=== PATIENT | female | born 1980 | race African-American/Black ===

== ENCOUNTER → 2016-09-17 | Outpatient (CLI) | payer OTHER ==
[2016-09-17 13:17] LABS: ABSOLUTE LYMPHOCYTES (AUTO) 1.5 10^3/uL (0.5-4.7); ABSOLUTE MONOCYTES (AUTO) 0.4 10^3/uL (0.1-1.4); ABSOLUTE NEUT (AUTO) 4.8 10^3/uL (1.7-8.2); BASOPHILS % (AUTO) 0.3 % (0-2); EOSINOPHILS % (AUTO) 0.6 % (0-6); HEMATOCRIT 36.6 % (36.0-47.0); HEMOGLOBIN 11.8 g/dL (12.0-15.5); HGB HCT DIFFERENCE -1.2; LYMPHOCYTES % (AUTO) 22.1 % (13-45); MEAN CORPUSCULAR HEMOGLOBIN 26.6 pg (27.0-33.4); MEAN CORPUSCULAR HGB CONC 32.3 g/dL (32.0-36.0); MEAN CORPUSCULAR VOLUME 83 fl (80-97); MONOCYTES % (AUTO) 5.4 % (3-13); RED BLOOD COUNT 4.44 10^6/uL (3.72-5.28); RED CELL DISTRIBUTION WIDTH 13.9 % (11.5-14.0); SEGMENTED NEUTROPHILS % (AUTO) 71.6 % (42-78); WHITE BLOOD COUNT 6.7 10^3/uL (4.0-10.5)
[2016-09-17 13:34] LABS: ALANINE AMINOTRANSFERASE 29 U/L (9-52); ALBUMIN 4.2 g/dL (3.5-5.0); ALKALINE PHOSPHATASE 84 U/L (38-126); ANION GAP 9 (5-19); ASPARTATE AMINO TRANSFERASE 20 U/L (14-36); BILIRUBIN,DIRECT 0.3 mg/dL (0.0-0.4); BILIRUBIN,TOTAL 0.4 mg/dL (0.2-1.3); BLOOD UREA NITROGEN 8 mg/dL (7-20); CALCIUM 9.3 mg/dL (8.4-10.2); CARBON DIOXIDE 26 mmol/L (22-30); CHLORIDE 105 mmol/L (98-107); CHOLESTEROL 234.26 mg/dL (0-200); CREATININE RESULT 0.69 mg/dL (0.52-1.25); Direct HDL 84 mg/dL (>40); GLUCOSE 95 mg/dL (75-110); SODIUM 140.1 mmol/L (137-145); TOTAL PROTEIN 8.1 g/dL (6.3-8.2); TRIGLYCERIDES 77 mg/dL (<150)
[2016-09-17 13:46] LABS: DIRECT LDL 119 mg/dL (<100)
== END ==
LOC: CCC 12:32
DX: I10 Essential (primary) hypertension (principal); E78.4 Other hyperlipidemia
CPT/HCPCS: 36415; 80053; 80061; 84443; 85025

== ENCOUNTER 2016-11-03 14:55 | Emergency (ER) | payer SELFPAY ==
--- NOTE | 2016-11-03 15:23 | ER Document Report ---
ED Medical Screen (RME) - General Chief Complaint: Psych Problem Stated Complaint: SUICIDAL IDEATION Time Seen by Provider: 11/03/16 15:21 Notes: Patient presents with suicidal and homicidal ideation. She also states she hears voices telling her that she should hurt herself. Patient is brought in by mobile crisis. TRAVEL OUTSIDE OF THE [place] IN LAST 30 DAYS: No - Related Data Allergies/Adverse Reactions: No Known Allergies Allergy (Verified 08/27/14 14:15) Past Medical History Renal/ Medical History: Denies: Hx Peritoneal Dialysis Psychiatric Medical History: Reports: Hx Anxiety, Hx Bipolar Disorder, Hx Borderline Personality Disorder, Hx Depression, Hx Obsessive Compulsive Disorder , Hx Schizoaffective Disorder, Hx Schizophrenia - Immunizations Hx Diphtheria, Pertussis, Tetanus Vaccination: No
[2016-11-03 15:53] LABS: ABSOLUTE BASOPHILS # (AUTO) 0.1 10^3/uL (0.0-0.2); ABSOLUTE EOSINOPHILS # (AUTO) 0.1 10^3/uL (0.0-0.6); ABSOLUTE LYMPHOCYTES (AUTO) 1.6 10^3/uL (0.5-4.7); ABSOLUTE MONOCYTES (AUTO) 0.4 10^3/uL (0.1-1.4); ABSOLUTE NEUT (AUTO) 4.9 10^3/uL (1.7-8.2); BASOPHILS % (AUTO) 0.7 % (0-2); EOSINOPHILS % (AUTO) 1.1 % (0-6); HEMATOCRIT 39.3 % (36.0-47.0); HEMOGLOBIN 12.8 g/dL (12.0-15.5); HGB HCT DIFFERENCE -0.9; MEAN CORPUSCULAR HEMOGLOBIN 27.3 pg (27.0-33.4); MEAN CORPUSCULAR HGB CONC 32.7 g/dL (32.0-36.0); MEAN CORPUSCULAR VOLUME 83 fl (80-97); MONOCYTES % (AUTO) 6.1 % (3-13); RED BLOOD COUNT 4.71 10^6/uL (3.72-5.28); RED CELL DISTRIBUTION WIDTH 14.3 % (11.5-14.0); SEGMENTED NEUTROPHILS % (AUTO) 69.1 % (42-78); WHITE BLOOD COUNT 7.1 10^3/uL (4.0-10.5)
[2016-11-03 16:13] LABS: ALANINE AMINOTRANSFERASE 33 U/L (9-52); ALBUMIN 4.5 g/dL (3.5-5.0); ALKALINE PHOSPHATASE 95 U/L (38-126); ANION GAP 13 (5-19); ASPARTATE AMINO TRANSFERASE 26 U/L (14-36); BILIRUBIN,DIRECT 0.3 mg/dL (0.0-0.4); BILIRUBIN,TOTAL 0.5 mg/dL (0.2-1.3); BLOOD UREA NITROGEN 7 mg/dL (7-20); CARBON DIOXIDE 26 mmol/L (22-30); CHLORIDE 103 mmol/L (98-107); CREATININE RESULT 0.82 mg/dL (0.52-1.25); GLUCOSE 91 mg/dL (75-110); POTASSIUM 4.4 mmol/L (3.6-5.0); SODIUM 141.9 mmol/L (137-145); TOTAL PROTEIN 8.3 g/dL (6.3-8.2)
[2016-11-03 16:14] LABS: ALCOHOL < 10 mg/dL (NONE DETECTED)
--- NOTE | 2016-11-03 18:00 | ER Document Report ---
ED Psych Disorder / Suicide - General Information source: Patient TRAVEL OUTSIDE OF THE [place] IN LAST 30 DAYS: No - HPI Onset: Other Onset was: Cannot confirm Suicide Risk Factors: Bipolar, Depressed, Schizophrenia, Other mental health dx. - Hx Anxiety, Hx Bipolar Disorder, Hx Borderline Personality Disorder, Hx Depression, Hx Obsessive Compulsive Disorder, Hx Schizoaffective Disorder, Hx Schizophrenia Situational problems related to: Daughter, Other Associated symptoms: Anxious Similar symptoms previously: Yes Recently seen / treated by doctor: Yes <LATONIA MONTENEGRO - Last Filed: 11/03/16 17:48> <KAYE JURADO - Last Filed: 11/04/16 07:54> <JOSSE BA - Last Filed: 11/04/16 09:33> - General Chief Complaint: Psych Problem Stated Complaint: SUICIDAL IDEATION Time Seen by Provider: 11/03/16 15:21 Notes: Patient said she began to feel as if she might have suicidal thoughts this afternoon. She went over to [facility] and they were unable to get her a room at another facility so they brought her to this emergency department. Patient says she has been having some suicidal thoughts over the past couple of days. She suffers from depression and bipolar disorder and insomnia. She says that she is experiencing suicidal thoughts now. Has not followed up a specific means by which she would commit suicide, however. Patient denies any recent illness. (JOSSE BA) - HPI Notes: Patient is a 36 year old female who presents to [facility] ED via Mobile Crisis for suicidal and homicidal ideations, and auditory command hallucinations instructing her to harm herself and others. Patient reported the following diagnoses: Anxiety, Bipolar Disorder, Borderline Personality Disorder, Depression, Obsessive Compulsive Disorder, Schizoaffective Disorder, and Schizophrenia. Patient this afternoon states she is overwhelmed with going to [facility]5 days a week and going to school. Patient states she "has drama" with her daughter who lives with her mother and is acting out. Patient states she recently started pulling her hair out. Patient states she takes her medications, but cannot afford to take all of them daily as prescribed. Patient initially states when asked that she wants to by suicide. Patient then states she decided to try and get some help. Patient challenged that she does not want to . Patient acknowledges she wants to feel better and not due by suicide. Patient does report prior attempts, and multiple prior inpatient hospitalizations. Patient reports few supports and numerous stressors. Patient reports she lives alone and thought about taking all of her pills. Patient is A&O. Mood is anxious and depressed per patient reports; however, she was observed joyfully engaging in conversation with security and others. Patient endorses suicidal ideations with means and plan. Patient denies homicidal ideations. Patient endorses auditory command hallucinations; however , did not appear to be responding to internal stimuli aeb eye contact, linear thought processes, remaining on topic, etc. Intellectual abilities were estimated within average range. Attention and focus were fair. Insight, judgment , and impulse control were poor. Borderline Personality Disorder, per history Generalized Anxiety Disorder, per history Discussed the care and management of this patient with ED MD, who is in agreement that the patient's presentation is more congruent with attention seeking and seeking to meet basic needs through the misuse of the emergency department and mental health systems. Patient will be held voluntarily overnight for observation and further evaluation/disposition in the morning. I consulted with Dr. Monique in regards to the care and management of this patient. (LATONIA MONTENEGRO) Clinician conducted check-in with patient on 11/04/2016: Patient states she is "not good and irritated." Patient continued to disclose that she needed to eat at this time so she does not get sick with her medications. When asked if patient is having suicidal thoughts she states yes however refuses to discuss further stating "hold on I have to pray." Patient states "she" (mobile photofinishing laboratory worker) is getting me a bed at the [facility], I have already discussed all this yesterday, I am not going through it again." Clinician attempted to explain patient's are reevaluated daily patient became verbally combative demanding to call [facility]; "I knew this was going to happen." Patient is alert and orientated to person, place, time and circumstance. Mood is irritable with labile affect. Patient endorses suicidal ideation however refuses to expound on this. Conversational speech is aggressive and irritable. Delusions were absent and behaviors congruent with an intact reality based presentation (i.e. organized, linear thinking). Eye contact was poor. Intellectual abilities appear to be within the average range. Attention and concentration are fair. Insight, judgment, impulse control were poor. 301.83 (F60.3) Borderline Personality Disorder, per history provided by patient 300.00 (F41.9) Generalized Anxiety Disorder, per history provided by patient Patient is considered psychiatrically clear for discharge. Patient does not meet IVC criteria per [place] GS 122C. Patient discloses passive suicidal ideation delusions were absent and behaviors congruent with an intact reality based presentation i.e. organized, rational, linear thinking. Patient has disclosed long history of mental health services to include currently going to psychosocial rehab 5 days a week. Psychosocial rehab is the most effective course of action to assist the patient for her mental health needs at this time. Dr. Monique was consulted on the care and management of this patient; attending physician is in agreement with recommendations and disposition (KAYE JURADO) - Related Data Allergies/Adverse Reactions: No Known Allergies Allergy (Verified 11/03/16 17:20) Home Medications: Current Home Medications Amlodipine Besylate [Norvasc 10 mg Tablet] 10 mg PO DAILY 11/03/16 [History] Buspirone HCl [Buspar 5 mg Tablet] 1 tab PO TID 11/03/16 [History] Clonazepam [Klonopin 0.5 mg Tablet Rapid Dissolve] 0.5 mg PO BID PRN 11/03/16 [ History] Vortioxetine Hydrobromide [Brintellix] 10 mg PO DAILY 11/03/16 [History] Zolpidem Tartrate [Ambien] 10 mg PO QHS 11/03/16 [History] Past Medical History - Social History Smoking Status: Never Smoker Frequency of alcohol use: None Drug Abuse: None Family History: Reviewed & Not Pertinent, Other Patient has suicidal ideation: Yes Patient has homicidal ideation: No Renal/ Medical History: Denies: Hx Peritoneal Dialysis Psychiatric Medical History: Reports: Hx Anxiety, Hx Bipolar Disorder, Hx Borderline Personality Disorder, Hx Depression, Hx Obsessive Compulsive Disorder , Hx Schizoaffective Disorder, Hx Schizophrenia - Immunizations Hx Diphtheria, Pertussis, Tetanus Vaccination: No <LATONIA MONTENEGRO - Last Filed: 11/03/16 17:48> - Social History Smoking Status: Never Smoker Cigarette use (# per day): No Family History: Reviewed & Not Pertinent - Past Medical History Cardiac Medical History: Reports: None, Hx Hypertension Neurological Medical History: Denies: Hx Seizures Endocrine Medical History: Denies: Hx Diabetes Mellitus Type 1, Hx Diabetes Mellitus Type 2 Psychiatric Medical History: Reports: Hx Anxiety, Hx Bipolar Disorder, Hx Depression Past Surgical History: Reports: Hx Section, Hx Tubal Ligation <JESENIAJOSSE - Last Filed: 11/04/16 09:33> Review of Systems <LATONIA MONTENEGRO - Last Filed: 11/03/16 17:48> <KAYE JURADO - Last Filed: 11/04/16 07:54> <JESENIAJOSSE - Last Filed: 11/04/16 09:33> - Review of Systems Notes: REVIEW OF SYSTEMS: CONSTITUTIONAL : Denies fever. EENT: Denies eye, ear, nose or mouth or throat pain or other symptoms. CARDIOVASCULAR: Denies chest pain. RESPIRATORY: Denies cough, chest congestion, or shortness of breath. GASTROINTESTINAL: Denies abdominal pain or nausea, vomiting, or diarrhea. GENITOURINARY: Denies difficulty or painful urinating, urinary frequency, blood in urine. MUSCULOSKELETAL: Denies back or neck pain. Denies joint pain or swelling. SKIN: Denies rash or skin lesions. NEUROLOGICAL: Denies LOC or altered mental status. Denies headache. Denies sensory loss or motor deficits. Psychological: See HPI. Anxiety, depression, suicidal thoughts ALL OTHER SYSTEMS REVIEWED AND NEGATIVE. (JOSSE BA) Physical Exam <LATONIA MONTENEGRO - Last Filed: 11/03/16 17:48> <KAYE JURADO - Last Filed: 11/04/16 07:54> - Vital signs Interpretation: Normal <JOSSE BA - Last Filed: 11/04/16 09:33> - Vital signs Vitals: Temp Pulse Resp BP Pulse Ox 98.4 F 71 16 129/91 H 100 11/03/16 15:09 11/03/16 15:09 11/03/16 15:09 11/03/16 15:09 11/03/16 15:09 - Notes Notes: PHYSICAL EXAMINATION: GENERAL: Well-appearing, in no acute distress. Vital signs are essentially normal. HEAD: Atraumatic, normocephalic. EYES: Pupils equal round and reactive to light, extraocular movements intact. ENT: oropharynx clear without exudates. Moist mucous membranes. NECK: Normal range of motion, supple. LUNGS: Breath sounds clear and equal bilaterally. HEART: Regular rate and rhythm without murmurs. ABDOMEN: Soft, nontender. No guarding or rebound. BACK: No tenderness throughout entire back. EXTREMITIES: Normal range of motion without pain. NEUROLOGICAL: Normal speech, normal gait. Normal sensory, motor, and reflex exams. Awake, alert, and oriented x3. Cranial nerves normal. PSYCH: Normal mood, normal affect. Does not seem very depressed. From my brief assessment, I do not think she is seriously suicidal. SKIN: Warm, dry, no rashes. (JOSSE BA) Course - Laboratory Result Diagrams: 11/03/16 15:30 11/03/16 15:30 <LATONIA MONTENEGRO - Last Filed: 11/03/16 17:48> - Laboratory Result Diagrams: 11/03/16 15:30 11/03/16 15:30 <KAYE JURADO - Last Filed: 11/04/16 07:54> - Laboratory Result Diagrams: 11/03/16 15:30 11/03/16 15:30 <JOSSE BA - Last Filed: 11/04/16 09:33> - Re-evaluation Re-evalutation: 11/03/16 17:40 Patient will have usual lab studies ordered. Mental health will be consulted. (JOSSE BA) - Vital Signs Vital signs: Temp Pulse Resp BP Pulse Ox 98.7 F 76 18 119/79 97 11/04/16 06:22 11/04/16 06:22 11/03/16 19:44 11/04/16 06:22 11/04/16 06:22 - Laboratory Laboratory results interpreted by me: 11/03/16 11/03/16 11/03/16 15:30 15:30 15:30 RDW 14.3 H Total Protein 8.3 H Urine Blood MODERATE H Salicylates < 1.0 L Acetaminophen < 10 L Discharge <LATONIA MONTENEGRO - Last Filed: 11/03/16 17:48> <KAYE JURADO - Last Filed: 11/04/16 07:54> <JOSSE BA - Last Filed: 11/04/16 09:33> - Discharge Clinical Impression: Borderline personality disorder Condition: Stable Disposition: HOME, SELF-CARE Additional Instructions: DEPRESSION: Your evaluation reveals that you have mental depression. While symptoms may be vague, they often include disturbance of sleep, fatigue, loss of appetite , and general loss of interest in life. While depression may be a side effect of drugs, or a reaction to a major change in your life, many cases have no known cause. If depression is acute, and related to a major loss in your life, you can expect it to clear completely with time. If you have been depressed a long time , are prone to repeated bouts of depression or low mood, or have been thinking of suicide, get help. Depression can be treated with anti-depressant medication and counselling. Long-term depression will often take a few weeks to clear, even with appropriate medication. Follow-up care is important. SUICIDAL IDEATION: Suicidal ideation is a common medical term for thoughts about suicide, which may be as detailed as a formulated plan, without the suicidal act itself. Although most people who undergo suicidal ideation do not commit suicide, some go on to make suicide attempts. The range of suicidal ideation varies greatly from fleeting to detailed planning, role playing, and unsuccessful attempts. While thoughts about suicide are common, most people do not carry out serious actions to commit suicide. Based upon your evaluation and discussion with you, we do not believe you are currently at risk to act upon your thoughts of suicide. You have agreed to return to the Emergency Department, at any time , if you feel inclined to act upon your suicidal thoughts. FOLLOW-UP CARE: Please follow-up with [facility] in 3-5 days for continued mental health needs. If you experience worsening or a significant change in your symptoms, notify the physician immediately or return to the Emergency Department at any time for re- evaluation. Referrals: [facility] [Primary Care Provider] - Follow up as needed [facility] [Outside] - Follow up in 3-5 days
[2016-11-03 18:30] LABS: AMORPHOUS SEDIMENT,URINE 1+ /HPF; APPEARANCE,URINE TURBID; BILIRUBIN,URINE NEGATIVE (NEGATIVE); GLUCOSE, URINE NEGATIVE (NEGATIVE); KETONES,URINE NEGATIVE (NEGATIVE); LEUKOCYTE ESTERASE,URINE NEGATIVE (NEGATIVE); NITRITE,URINE NEGATIVE (NEGATIVE); PROTEIN,URINE NEGATIVE (NEGATIVE); URINE SPECIFIC GRAVITY 1.025; UROBILINOGEN,URINE NEGATIVE mg/dL (<2.0)
[2016-11-03 18:49] LABS: URINE BARBITURATES SCREEN NEGATIVE; URINE METHADONE SCREEN NEGATIVE; URINE OPIATES LOW NEGATIVE; URINE PHENCYCLIDINE SCREEN NEGATIVE
[2016-11-03] MEDS ORDERED: ZOLPIDEM TARTRATE 5 MG TABLET ONE (21:01)
[2016-11-04] MEDS ORDERED: CLONAZEPAM 1 MG TABLET PO PRN (05:30)
[2016-11-04] MEDS ORDERED: BUSPIRONE HCL 10 MG TABLET PO SCH (06:00)
--- NOTE | 2016-11-04 09:32 | ER Document Report ---
Doctor's Note Notes: 11/04/16 09:31 Rounds: Chart reviewed and patient interviewed. Patient says she is not feeling any better, but does not appear to be suicidal to me. She has been evaluated by mental health who also do not feel that she meets criteria for involuntary commitment. Vital signs are all normal. Labs were essentially normal. Patient is medically stable for transfer or discharge and she is being discharged. Alina Monroy MD
[2016-11-04] MEDS ORDERED: (PENDING PHARMACY ID) (Vortioxetine Hydrobromide [Trintellix] 10 MG) PO SCH (10:00)
[2016-11-04] MEDS ORDERED: AMLODIPINE BESYLATE 10 MG TABLET PO SCH (10:00)
[2016-11-04 10:05] VITALS: BP 132/74
[2016-11-04] MEDS ORDERED: ZOLPIDEM TARTRATE 5 MG TABLET PO SCH (22:00)
== END 2016-11-04 10:05 | disposition home or self-care (01) ==
LOC: ER 14:55
DX: F60.3 Borderline personality disorder (principal); F41.9 Anxiety disorder, unspecified; I10 Essential (primary) hypertension; Z91.14 Patient's other noncompliance with medication regimen
CPT/HCPCS: 36415; 80053; 80307; 81001; 84703; 85025; 99285

== ENCOUNTER 2017-12-23 12:11 | Emergency (ER) | payer SELFPAY ==
[2017-12-23] MEDS ORDERED: ZIPRASIDONE MESYLATE INJ/PF 20 MG SDV IM ONE (12:41)
--- NOTE | 2017-12-23 12:44 | ER Document Report ---
ED Medical Screen (RME) - General Chief Complaint: Psych Problem Stated Complaint: PSYCH EVAL Time Seen by Provider: 12/23/17 12:41 Notes: 37 years old female with a history of psychotic disorder has not been taking any medications for a long time, apparently on the 12th of this month daughter left the house. Since then having with them in her words nervous breakdown. Having auditory hallucinations with voices telling to hurt herself as well as her the others. Therefore she presents to the ED for help. TRAVEL OUTSIDE OF THE [place] IN LAST 30 DAYS: No - Related Data Allergies/Adverse Reactions: No Known Allergies Allergy (Verified 12/23/17 12:12) Past Medical History - Past Medical History Cardiac Medical History: Reports: Hx Hypertension Neurological Medical History: Denies: Hx Seizures Endocrine Medical History: Denies: Hx Diabetes Mellitus Type 1, Hx Diabetes Mellitus Type 2 Renal/ Medical History: Denies: Hx Peritoneal Dialysis Psychiatric Medical History: Reports: Hx Anxiety, Hx Bipolar Disorder, Hx Borderline Personality Disorder, Hx Depression, Hx Obsessive Compulsive Disorder , Hx Schizoaffective Disorder, Hx Schizophrenia Past Surgical History: Reports: Hx Section, Hx Tubal Ligation - Immunizations Hx Diphtheria, Pertussis, Tetanus Vaccination: No Physical Exam - Vital signs Vitals: Temp Pulse Resp BP Pulse Ox 98.7 F 78 20 154/90 H 100 12/23/17 12:39 12/23/17 12:39 12/23/17 12:39 12/23/17 12:39 12/23/17 12:39 Course - Vital Signs Vital signs: Temp Pulse Resp BP Pulse Ox 98.7 F 78 20 154/90 H 100 12/23/17 12:39 12/23/17 12:39 12/23/17 12:39 12/23/17 12:39 12/23/17 12:39 Doctor's Discharge - Discharge Referrals: [facility] [Primary Care Provider] - Follow up as needed
--- NOTE | 2017-12-23 13:01 | ER Document Report ---
ED Psych Disorder / Suicide <KAYE JURADO - Last Filed: 12/24/17 08:50> - General TRAVEL OUTSIDE OF THE [place] IN LAST 30 DAYS: No <JOSSE BA - Last Filed: 12/24/17 09:36> - General Chief Complaint: Psych Problem Stated Complaint: PSYCH EVAL Time Seen by Provider: 12/23/17 12:41 Notes: Patient is here because she is having thoughts of harming herself. She says that she is upset because her 19-year-old daughter is and she left the home and the patient does not know where she is. Patient says that she has mental conditions and goes to [facility]. She feels as if she may be going to have a nervous breakdown. Told someone working for [employer] that she was considering walking out in front of traffic. She is not on any current medications. Patient is refusing any examination, medication, or further assessment. She sounds very angry and hostile. (JOSSE BA) - Related Data Allergies/Adverse Reactions: No Known Allergies Allergy (Verified 12/23/17 12:12) Past Medical History - Social History Smoking Status: Former Smoker Chew tobacco use (# tins/day): No Frequency of alcohol use: None Drug Abuse: None Family History: Reviewed & Not Pertinent Patient has suicidal ideation: Yes Patient has homicidal ideation: Yes - Past Medical History Cardiac Medical History: Reports: Hx Hypertension Endocrine Medical History: Denies: Hx Diabetes Mellitus Type 1, Hx Diabetes Mellitus Type 2 Psychiatric Medical History: Reports: Hx Anxiety, Hx Bipolar Disorder, Hx Borderline Personality Disorder, Hx Depression, Hx Obsessive Compulsive Disorder , Hx Schizoaffective Disorder, Hx Schizophrenia Past Surgical History: Reports: Hx Section, Hx Tubal Ligation - Immunizations Hx Diphtheria, Pertussis, Tetanus Vaccination: No <JOSSE BA - Last Filed: 12/24/17 09:36> Review of Systems - Review of Systems -: Yes ROS unobtainable due to patient's medical condition <JOSSE BA - Last Filed: 12/24/17 09:36> Physical Exam <KAYE JURADO - Last Filed: 12/24/17 08:50> - Vital signs Interpretation: Normal <JOSSE BA - Last Filed: 12/24/17 09:36> - Vital signs Vitals: Temp Pulse Resp BP Pulse Ox 98.7 F 78 20 154/90 H 100 12/23/17 12:39 12/23/17 12:39 12/23/17 12:39 12/23/17 12:39 12/23/17 12:39 - Notes Notes: Patient is agreeable to me examining her at this time after receiving Geodon 20 mg IM. PHYSICAL EXAMINATION: GENERAL: Well-appearing, in no acute distress. Speech is somewhat fast and loud and aggravated sounding upon presentation, but now seems calm and quiet and cooperative. HEAD: Atraumatic, normocephalic. EYES: Pupils equal round and reactive to light, extraocular movements intact. ENT: oropharynx clear without exudates. Moist mucous membranes. NECK: Normal range of motion, supple. LUNGS: Breath sounds clear and equal bilaterally. HEART: Regular rate and rhythm without murmurs. ABDOMEN: Soft, nontender. No guarding or rebound. No masses. Nurses report patient has complained of nausea and she vomited twice. Patient says she also has "the runs" now. BACK: No tenderness throughout entire back. EXTREMITIES: Normal range of motion without pain. NEUROLOGICAL: Normal, but loud speech upon presentation. Normal gait. Normal sensory, motor, and reflex exams. Awake, alert, and oriented x3. Cranial nerves normal. PSYCH: Normal mood, normal affect. SKIN: Warm, dry, no rashes. (JOSSE BA) Course - Laboratory Result Diagrams: 12/23/17 13:45 12/23/17 13:45 <KAYE JURADO - Last Filed: 12/24/17 08:50> - Laboratory Result Diagrams: 12/23/17 13:45 12/23/17 13:45 <JOSSE BA - Last Filed: 12/24/17 09:36> - Re-evaluation Re-evalutation: 12/23/17 15:53 Patient was given grams IM. She rather quickly calmed down and cooperated with request for blood and urine. Vomited a couple of times, but says she no longer nauseated and does not for the nausea or vomiting. Also says she had an episode of diarrhea. I did my physical exam of the patient's abdomen is completely soft and nontender throughout. 12/23/17 18:53 Labs all essentially normal except for positive marijuana on patient's drug test. (JOSSE BA) - Vital Signs Vital signs: Temp Pulse Resp BP Pulse Ox 97.4 F 69 18 147/82 H 100 12/24/17 09:31 12/24/17 09:31 12/24/17 09:31 12/24/17 09:31 12/24/17 09:31 - Laboratory Laboratory results interpreted by me: 12/23/17 12/23/17 12/23/17 13:45 13:45 13:50 RDW 14.7 H Urine Protein 30 H Urine Ketones TRACE H Urine Blood LARGE H Salicylates < 1.0 L Acetaminophen < 10 L Discharge <KAYE JURADO - Last Filed: 12/24/17 08:50> <JOSSE BA - Last Filed: 12/24/17 09:36> - Discharge Clinical Impression: Depression Qualifiers: Depression Type: unspecified Qualified Code(s): F32.9 - Major depressive disorder, single episode, unspecified Condition: Stable Disposition: HOME, SELF-CARE Additional Instructions: You have been evaluated by both medical and behavioral health teams and have been deemed appropriate for discharge. Please follow up with your outpatient mental health, [facility], at your regularly scheduled appointment on Wednesday at 1pm for therapy and 2pm for your medication management appointment. You have been provided prescriptions for BuSpar 5 mg 3 times daily, Prozac 10 mg daily and Zyprexa 2.5 mg nightly; please take as directed DEPRESSION: Your evaluation reveals that you have mental depression. While symptoms may be vague, they often include disturbance of sleep, fatigue, loss of appetite , and general loss of interest in life. While depression may be a side effect of drugs, or a reaction to a major change in your life, many cases have no known cause. If depression is acute, and related to a major loss in your life, you can expect it to clear completely with time. If you have been depressed a long time , are prone to repeated bouts of depression or low mood, or have been thinking of suicide, get help. Depression can be treated with anti-depressant medication and counselling. Long-term depression will often take a few weeks to clear, even with appropriate medication. Follow-up care is important. FOLLOW-UP CARE: If you experience worsening or a significant change in your symptoms, notify the physician immediately or return to the Emergency Department at any time for re-evaluation. Prescriptions: Olanzapine [Zyprexa 2.5 Mg Tablet] 2.5 mg PO QHS #15 tablet Buspirone HCl [Buspar 5 mg Tablet] 1 tab PO TID #50 tab Fluoxetine HCl [Prozac] 10 mg PO DAILY #15 capsule Referrals: [facility] [Primary Care Provider] - Follow up as needed [facility] [Provider Group] - 12/27/17
--- NOTE | 2017-12-23 13:21 | PSYCHOLOGICAL NOTE ---
Psych Note - Psych Note Date seen by psych provider: 12/23/17 Time seen by psych provider: 13:00 Psych Note: Reason for Consult: Suicidal ideation, auditory hallucinations 37 years old female with a history of psychotic disorder has not been taking any medications for a long time, apparently on the of this month daughter left the house. Since then having she reports she is having a "nervous breakdown" and auditory hallucinations with voices telling to hurt herself as well as others. Therefore she presents to the ED for help. Clinician Abdulaziz received phone call from mobile yarn worker who disclosed they had responded to a crisis call. They report the patient was very distraught and made suicidal comments. She continued to report the patient refused to be taken to [facility] however then confirmed she would only she would walk into the ED on her own. Patient reports that her daughter moved out of their home with no warning. She discloses she does not understand why. She continued to report that while she [facility] on Wednesday her daughter moved out when she came home she found the escoto sitting on the table with a note stating that she did not want to live a lie anymore and that she felt the patient was a bad mother. The patient continued disclosed her daughter since has blocked her phone so she is unable to get in contact with her and she does not know if her daughter safe. Patient is alert and orientated to person, place, time and circumstance. Clinician notes patient appeared to be confused about circumstance when originally arriving to [facility] however has since been able to articulate her circumstance clearly. Patient endorses suicidal ideation of jumping into traffic however when directly asked to discuss this she evades questioning. Patient will not disclose on homicidal ideation. Mood is labile fluctuating between tearful affect and irritability. Thought processes are organized and linear however thought content is very focused on her current stressor. She has difficulty in engaging in evaluation other than talking about her stressor. Eye contact is poor; patient never makes eye contact. Intellectual abilities appear to be within the average range. Attention and concentration are poor. Insight, judgment, impulse control are fair. Patient's home medication per [facility] BuSpar 5 mg 3 times daily Prozac 10 mg daily Zyprexa 2.5 mg nightly 311 (F32.9) unspecified depressive disorder Impression\\plan: Patient is recommended for IVC. Patient mood is very labile fluctuating between tearful affect and irritability. Patient reports she wants help however refuses to engage with clinician in [facility] staff. Patient discloses having difficulty dealing with her 19-year-old daughter moving out while she was at a doctor appointment. Since that appointment, the patient's daughter has ceased any communication and blocked her number. Patient will be reevaluated. Dr. Monique was consulted and the care management this patient; attending physician is agreement with recommendations and disposition.
[2017-12-23 14:11] LABS: ABSOLUTE LYMPHOCYTES (AUTO) 0.9 10^3/uL (0.5-4.7); ABSOLUTE MONOCYTES (AUTO) 0.3 10^3/uL (0.1-1.4); ABSOLUTE NEUT (AUTO) 3.1 10^3/uL (1.7-8.2); BASOPHILS % (AUTO) 0.6 % (0-2); EOSINOPHILS % (AUTO) 0.4 % (0-6); HEMATOCRIT 36.3 % (36.0-47.0); HEMOGLOBIN 12.2 g/dL (12.0-15.5); LYMPHOCYTES % (AUTO) 20.4 % (13-45); MEAN CORPUSCULAR HEMOGLOBIN 28.6 pg (27.0-33.4); MEAN CORPUSCULAR HGB CONC 33.5 g/dL (32.0-36.0); MEAN CORPUSCULAR VOLUME 85 fl (80-97); MONOCYTES % (AUTO) 6.1 % (3-13); PLATELET COUNT 237 10^3/uL (150-450); RED BLOOD COUNT 4.26 10^6/uL (3.72-5.28); RED CELL DISTRIBUTION WIDTH 14.7 % (11.5-14.0); SEGMENTED NEUTROPHILS % (AUTO) 72.5 % (42-78); TOTAL CELLS COUNTED % (AUTO) 100 %; WHITE BLOOD COUNT 4.3 10^3/uL (4.0-10.5)
[2017-12-23 14:40] LABS: ALANINE AMINOTRANSFERASE 23 U/L (9-52); ALBUMIN 4.1 g/dL (3.5-5.0); ALKALINE PHOSPHATASE 62 U/L (38-126); ANION GAP 11 (5-19); ASPARTATE AMINO TRANSFERASE 21 U/L (14-36); BILIRUBIN,DIRECT 0.2 mg/dL (0.0-0.4); BILIRUBIN,TOTAL 0.7 mg/dL (0.2-1.3); BLOOD UREA NITROGEN 9 mg/dL (7-20); CALCIUM 9.5 mg/dL (8.4-10.2); CARBON DIOXIDE 23 mmol/L (22-30); CHLORIDE 106 mmol/L (98-107); GLUCOSE 101 mg/dL (75-110); POTASSIUM 3.9 mmol/L (3.6-5.0); SODIUM 139.6 mmol/L (137-145); TOTAL PROTEIN 7.4 g/dL (6.3-8.2)
[2017-12-23 14:42] LABS: ACETAMINOPHEN < 10 ug/mL (10-30); ALCOHOL < 10 mg/dL (NONE DETECTED); SALICYLATE < 1.0 mg/dL (2.0-20.0)
[2017-12-23 15:07] LABS: APPEARANCE,URINE SLIGHTLY-CLOUDY; BILIRUBIN,URINE NEGATIVE (NEGATIVE); COLOR,URINE YELLOW; GLUCOSE, URINE NEGATIVE (NEGATIVE); KETONES,URINE TRACE mg/dL (NEGATIVE); LEUKOCYTE ESTERASE,URINE NEGATIVE (NEGATIVE); NITRITE,URINE NEGATIVE (NEGATIVE); PROTEIN,URINE 30 mg/dL (NEGATIVE); URINE SPECIFIC GRAVITY 1.023; UROBILINOGEN,URINE NEGATIVE mg/dL (<2.0)
[2017-12-23 15:17] LABS: URINE AMPHETAMINES SCREEN NEGATIVE; URINE BARBITURATES SCREEN NEGATIVE; URINE BENZODIAZEPINES SCREEN NEGATIVE; URINE COCAINE SCREEN NEGATIVE; URINE MARIJUANA (THC) SCREEN UNCONFIRMED POSITIVE; URINE METHADONE SCREEN NEGATIVE; URINE PHENCYCLIDINE SCREEN NEGATIVE
[2017-12-23] MEDS: FLUOXETINE HCL 20 MG CAPSULE PO SCH (17:07)
[2017-12-23] MEDS: BUSPIRONE HCL 10 MG TABLET PO SCH (17:07)
--- NOTE | 2017-12-23 18:28 | EKG REPORT ---
SEVERITY:- NORMAL ECG - SINUS RHYTHM : Confirmed by: Thomas Spencer MD 23-Dec-2017 18:28:02
[2017-12-23] MEDS ORDERED: OLANZAPINE 2.5 MG TABLET PO SCH (22:00)
[2017-12-24] MEDS: FLUOXETINE HCL 20 MG CAPSULE PO SCH (09:14)
[2017-12-24] MEDS: BUSPIRONE HCL 10 MG TABLET PO SCH (09:14)
[2017-12-24 09:34] VITALS: BP 147/82
--- NOTE | 2017-12-24 09:41 | ER Document Report ---
Doctor's Note Notes: 12/24/17 09:39 Rounds: Chart reviewed and patient interviewed. Patient is doing much better. Very pleasant, outgoing, conversant, no complaints. Patient has been started on BuSpar, Prozac, and Zyprexa. Vital signs are all normal. No labs to review today. Patient appears to be medically stable for transfer or discharge. Alina Monroy MD
--- NOTE | 2017-12-24 15:35 | PSYCHOLOGICAL NOTE ---
Psych Note - Psych Note Date seen by psych provider: 12/24/17 Time seen by psych provider: 08:04 Psych Note: Reason for Consult: Suicidal ideation, auditory hallucinations 37 years old female with a history of psychotic disorder has not been taking any medications for a long time, apparently on the of this month daughter left the house. Since then having she reports she is having a "nervous breakdown" and auditory hallucinations with voices telling to hurt herself as well as others. Therefore she presents to the ED for help. Clinician conducted check-in with patient Patient apologized to clinician about her behavior during her initial arrival to [facility] yesterday. She reports she has little memory of what occurred. She discloses that she has been having difficulty sleeping since her daughter left with no word. She reports that she has a therapy appointment on Wednesday at 1 PM in a medication management appointment at 2 PM with her provider at [facility]. She disclosed that she been off medication for years and been doing well however after trying all of her coping skills is very clear she needed more assistance. She reports she is very glad she came in even though she seemed to have come in confused about the situation. Patient's home medication per [facility] BuSpar 5 mg 3 times daily Prozac 10 mg daily Zyprexa 2.5 mg nightly 311 (F32.9) unspecified depressive disorder Impression\\plan: Patient is recommended for rescind of IVC and is cleared from acute psychiatric services. Patient discloses that she has been under a lot of stress and not sleeping since her daughter left. She apologized for her behavior previous day and reports that she does have scheduled appointments for therapy and medication management on 12/27/2017 with her outpatient mental health provider, an[facility]. Patient states she attempted to use her coping skills however she is glad she was started on medications because it appears that she needed the extra assistance. Dr. Monique was consulted and the care management this patient; attending physician is agreement with recommendations and disposition.
== END 2017-12-24 09:34 | disposition home or self-care (01) ==
LOC: ER 12:11
DX: F32.9 Major depressive disorder, single episode, unspecified (principal); R45.851 Suicidal ideations; R44.0 Auditory hallucinations; R11.10 Vomiting, unspecified; I10 Essential (primary) hypertension; Z98.51 Tubal ligation status
CPT/HCPCS: 93005; 99285; 96372; 36415; 80307 ×4; 85025; 80053; 81001; 93010; J3490; J3486

== ENCOUNTER 2018-05-06 15:35 | Emergency (ER) | payer SELFPAY ==
--- NOTE | 2018-05-06 16:15 | ER Document Report ---
ED Medical Screen (RME) - General Chief Complaint: Vaginal Bleeding Stated Complaint: ABNORMAL VAGINAL BLEEDING Time Seen by Provider: 05/06/18 16:12 Notes: Patient says that she is noticed vaginal bleeding daily for the past 2-1/2 weeks. It comes and goes each day. Has never had this happen before. Her last menstrual cycle was at the beginning of April. She has had her tubes tied. BTL, . Hypertension. TRAVEL OUTSIDE OF THE U[place] IN LAST 30 DAYS: No - Related Data Allergies/Adverse Reactions: No Known Allergies Allergy (Verified 12/23/17 12:12) Past Medical History - Social History Chew tobacco use (# tins/day): No Frequency of alcohol use: None Drug Abuse: None, Marijuana - Past Medical History Cardiac Medical History: Reports: Hx Hypertension Neurological Medical History: Denies: Hx Seizures Endocrine Medical History: Denies: Hx Diabetes Mellitus Type 1, Hx Diabetes Mellitus Type 2 Renal/ Medical History: Denies: Hx Peritoneal Dialysis Psychiatric Medical History: Reports: Hx Anxiety, Hx Bipolar Disorder, Hx Borderline Personality Disorder, Hx Depression, Hx Obsessive Compulsive Disorder, Hx Schizoaffective Disorder, Hx Schizophrenia Past Surgical History: Reports: Hx Section, Hx Tubal Ligation - Immunizations Hx Diphtheria, Pertussis, Tetanus Vaccination: No Physical Exam - Vital signs Vitals: Temp Pulse Resp BP Pulse Ox 99.0 F 71 16 131/71 H 100 05/06/18 15:52 05/06/18 15:52 05/06/18 15:52 05/06/18 15:52 05/06/18 15:52 Course - Vital Signs Vital signs: Temp Pulse Resp BP Pulse Ox 99.0 F 71 16 131/71 H 100 05/06/18 15:52 05/06/18 15:52 05/06/18 15:52 05/06/18 15:52 05/06/18 15:52
[2018-05-06 16:46] LABS: ABSOLUTE EOSINOPHILS # (AUTO) 0.1 10^3/uL (0.0-0.6); ABSOLUTE LYMPHOCYTES (AUTO) 1.6 10^3/uL (0.5-4.7); ABSOLUTE MONOCYTES (AUTO) 0.5 10^3/uL (0.1-1.4); ABSOLUTE NEUT (AUTO) 5.7 10^3/uL (1.7-8.2); BASOPHILS % (AUTO) 0.5 % (0-2); EOSINOPHILS % (AUTO) 0.8 % (0-6); HEMATOCRIT 35.8 % (36.0-47.0); HEMOGLOBIN 11.7 g/dL (12.0-15.5); LYMPHOCYTES % (AUTO) 20.1 % (13-45); MEAN CORPUSCULAR HGB CONC 32.8 g/dL (32.0-36.0); MEAN CORPUSCULAR VOLUME 86 fl (80-97); MONOCYTES % (AUTO) 6.3 % (3-13); PLATELET COUNT 267 10^3/uL (150-450); RED BLOOD COUNT 4.18 10^6/uL (3.72-5.28); RED CELL DISTRIBUTION WIDTH 14.1 % (11.5-14.0); SEGMENTED NEUTROPHILS % (AUTO) 72.3 % (42-78); TOTAL CELLS COUNTED % (AUTO) 100 %; WHITE BLOOD COUNT 7.9 10^3/uL (4.0-10.5)
[2018-05-06 16:49] LABS: APPEARANCE,URINE CLEAR; BILIRUBIN,URINE NEGATIVE (NEGATIVE); COLOR,URINE STRAW; GLUCOSE, URINE NEGATIVE (NEGATIVE); KETONES,URINE NEGATIVE (NEGATIVE); LEUKOCYTE ESTERASE,URINE NEGATIVE (NEGATIVE); NITRITE,URINE NEGATIVE (NEGATIVE); PROTEIN,URINE NEGATIVE (NEGATIVE); URINE SPECIFIC GRAVITY 1.015; UROBILINOGEN,URINE NEGATIVE mg/dL (<2.0)
[2018-05-06 16:58] LABS: ALANINE AMINOTRANSFERASE 21 U/L (9-52); ALBUMIN 4.2 g/dL (3.5-5.0); ALKALINE PHOSPHATASE 58 U/L (38-126); ANION GAP 10 (5-19); ASPARTATE AMINO TRANSFERASE 21 U/L (14-36); BILIRUBIN,DIRECT 0.1 mg/dL (0.0-0.4); BILIRUBIN,TOTAL 0.3 mg/dL (0.2-1.3); BLOOD UREA NITROGEN 14 mg/dL (7-20); CALCIUM 9.5 mg/dL (8.4-10.2); CARBON DIOXIDE 26 mmol/L (22-30); CHLORIDE 104 mmol/L (98-107); GLUCOSE 96 mg/dL (75-110); POTASSIUM 4.1 mmol/L (3.6-5.0); SODIUM 139.8 mmol/L (137-145); TOTAL PROTEIN 7.5 g/dL (6.3-8.2)
--- NOTE | 2018-05-06 17:43 | RADIOLOGY REPORT (SQ) ---
EXAM DESCRIPTION: U/S NON-OB PELVIS TV W/O DOP COMPLETED DATE/TIME: 05/06/2018 5:13 pm REASON FOR STUDY: Heavy vaginal bleeding x2 half weeks COMPARISON: None. TECHNIQUE: Dynamic and static grayscale images acquired of the pelvis via transvaginal approach and recorded on PACS. Additional selected color Doppler and spectral images recorded. LIMITATIONS: None. FINDINGS: UTERUS: Contour normal. No mass. ENDOMETRIAL STRIPE: No focal or generalized thickening. No masses. CERVIX: No nabothian cysts. RIGHT OVARY AND DOPPLER: Normal size. No worrisome masses. Normal arterial vascular flow without evid ence for torsion. LEFT OVARY AND DOPPLER: Normal size. No worrisome masses. Normal arterial vascular flow without evide nce for torsion. FREE FLUID: None noted. OTHER: No other significant finding. MEASUREMENTS: UTERUS: 9.1 x 5.7 x 5.3 cm ENDOMETRIAL STRIPE: 1.4 cm RIGHT OVARY: 2.9 x 3.4 x 2.2 cm LEFT OVARY: 3.0 x 2.3 x 2.1 cm IMPRESSION: NORMAL TRANSVAGINAL PELVIC ULTRASOUND. TECHNICAL DOCUMENTATION: JOB ID: [id number] [place]-72 2010 [employer]- All Rights Reserved Rev-07/23 Reading location - IP/workstation name: [email or web address]
--- NOTE | 2018-05-06 19:28 | ER Document Report ---
ED General - General Chief Complaint: Vaginal Bleeding Stated Complaint: ABNORMAL VAGINAL BLEEDING Time Seen by Provider: 05/06/18 16:12 Mode of Arrival: Ambulatory Information source: Patient TRAVEL OUTSIDE OF THE [place] IN LAST 30 DAYS: No - HPI Patient complains to provider of: DUB Onset: Other - 2.5 WEEKS Onset/Duration: Constant, Waxing and waning Quality of pain: Cramping Severity: None Pain Level: Denies Associated symptoms: None Exacerbated by: Denies Relieved by: Denies Similar symptoms previously: No Recently seen / treated by doctor: No Notes: 37-year-old -Fijian female with continuous waxing and waning vaginal bleeding for the past 2-1/2 weeks. Denies . Denies sexual intercourse or any vaginal trauma. Unable to get in to see oncology. No weakness, dizziness, shortness of breath, lightheadedness, or syncope. No chest pain - Related Data Allergies/Adverse Reactions: No Known Allergies Allergy (Verified 12/23/17 12:12) Past Medical History - General Information source: Patient - Social History Smoking Status: Never Smoker Chew tobacco use (# tins/day): No Frequency of alcohol use: None Drug Abuse: None, Marijuana Family History: Reviewed & Not Pertinent Patient has suicidal ideation: No Patient has homicidal ideation: No - Past Medical History Cardiac Medical History: Reports: Hx Hypertension Neurological Medical History: Denies: Hx Seizures Endocrine Medical History: Denies: Hx Diabetes Mellitus Type 1, Hx Diabetes Mellitus Type 2 Renal/ Medical History: Denies: Hx Peritoneal Dialysis Psychiatric Medical History: Reports: Hx Anxiety, Hx Bipolar Disorder, Hx Borderline Personality Disorder, Hx Depression, Hx Obsessive Compulsive Disorder, Hx Schizoaffective Disorder, Hx Schizophrenia Past Surgical History: Reports: Hx Section, Hx Tubal Ligation - Immunizations Hx Diphtheria, Pertussis, Tetanus Vaccination: No Review of Systems - Review of Systems Notes: Constitutional: No fevers. No chills. EENT: No eye redness. No eye pain. No ear pain. No sore throat. Cardiovascular: No chest pain. No palpitations. Respiratory: No cough. No shortness of breath. No respiratory distress. Gastrointestinal: No abdominal pain. No nausea, vomiting, or diarrhea. Genitourinary: Atraumatic. No lesions. No pain. No discharge. Vaginal bleeding Musculoskeletal: Atraumatic. No swelling. No deformities. Skin: No rash or lesions. Lymphatic: No swollen lymph nodes. Neurologic: No headache. No syncope. Psychiatric: No suicidal or homicidal ideation. Physical Exam - Vital signs Vitals: Temp Pulse Resp BP Pulse Ox 99.0 F 71 16 131/71 H 100 05/06/18 15:52 05/06/18 15:52 05/06/18 15:52 05/06/18 15:52 05/06/18 15:52 - Notes Notes: General: Well-developed, well-nourished. In no acute distress. Non-toxic dorcas earing. Cardiac: Well-perfused. Pulmonary: No respiratory distress. No cyanosis. Abdominal: Non-distended. HEENT: Head is atraumatic. Conjunctivae not reddened. No tearing. Dermatologic: NO RASH VISUALIZED Atraumatic. Chest: Atraumatic. Musculoskeletal: Moves all extremities well. Genitourinary: Examination deferred Neurologic: No gross neurologic deficits. Psychiatric: Normal mood. Course - Re-evaluation Re-evalutation: 05/06/18 19:28 Labs are stable. HCG is negative. Pelvic ultrasound reveals no obvious abno rmalities. Patient does not have any risk factors for blood clots. Discussed the option of starting on control pills. Patient would like to start control pills to regulate her cycle. We will start her on Loestrin pack and give her Dr. Ahmadi as follow-up - Vital Signs Vital signs: Temp Pulse Resp BP Pulse Ox 99.0 F 71 16 131/71 H 100 05/06/18 15:52 05/06/18 15:52 05/06/18 15:52 05/06/18 15:52 05/06/18 15:52 - Laboratory Result Diagrams: 05/06/18 16:25 05/06/18 16:25 Laboratory results interpreted by me: 05/06/18 16:25 Hgb 11.7 L Hct 35.8 L RDW 14.1 H Discharge - Discharge Clinical Impression: Dysfunctional uterine bleeding, Mild anemia Condition: Good Disposition: HOME, SELF-CARE Instructions: Dysfunctional Uterine Bleeding ([facility]) Additional Instructions: Start the control pill as directed. This should help regulate her monthly bleeding. In the meantime, be sure to make an appointment with gynecology as follow-up. Prescriptions: Norethindrone-E.estradiol-Iron [Loestrin Fe 1.5-30 Tablet] 1 tab PO DAILY #1 pkt Referrals: YUDI AHMADI MD [ACTIVE STAFF] - Follow up in 1 week
[2018-05-06 19:52] VITALS: BP 132/85
== END 2018-05-06 19:53 | disposition home or self-care (01) ==
LOC: ER 15:35
DX: N93.8 Other specified abnormal uterine and vaginal bleeding (principal); D64.9 Anemia, unspecified; I10 Essential (primary) hypertension
CPT/HCPCS: 36415; 76830; 80053; 81001; 84703; 85025; 99284

== ENCOUNTER → 2018-05-06 | Outpatient (CLI) | payer OTHER ==
[2018-05-06 13:20] LABS: ABSOLUTE LYMPHOCYTES (AUTO) 1.4 10^3/uL (0.5-4.7); ABSOLUTE MONOCYTES (AUTO) 0.4 10^3/uL (0.1-1.4); ABSOLUTE NEUT (AUTO) 4.8 10^3/uL (1.7-8.2); BASOPHILS % (AUTO) 0.4 % (0-2); EOSINOPHILS % (AUTO) 0.7 % (0-6); HEMATOCRIT 35.6 % (36.0-47.0); HEMOGLOBIN 11.9 g/dL (12.0-15.5); LYMPHOCYTES % (AUTO) 21.2 % (13-45); MEAN CORPUSCULAR HEMOGLOBIN 28.5 pg (27.0-33.4); MEAN CORPUSCULAR HGB CONC 33.5 g/dL (32.0-36.0); MEAN CORPUSCULAR VOLUME 85 fl (80-97); MONOCYTES % (AUTO) 5.5 % (3-13); PLATELET COUNT 259 10^3/uL (150-450); RED BLOOD COUNT 4.19 10^6/uL (3.72-5.28); RED CELL DISTRIBUTION WIDTH 14.2 % (11.5-14.0); SEGMENTED NEUTROPHILS % (AUTO) 72.2 % (42-78); TOTAL CELLS COUNTED % (AUTO) 100 %; WHITE BLOOD COUNT 6.6 10^3/uL (4.0-10.5)
[2018-05-06 13:34] LABS: ALANINE AMINOTRANSFERASE 27 U/L (9-52); ALBUMIN 4.2 g/dL (3.5-5.0); ALKALINE PHOSPHATASE 54 U/L (38-126); ANION GAP 8 (5-19); ASPARTATE AMINO TRANSFERASE 21 U/L (14-36); BILIRUBIN,DIRECT 0.2 mg/dL (0.0-0.4); BILIRUBIN,TOTAL 0.5 mg/dL (0.2-1.3); BLOOD UREA NITROGEN 10 mg/dL (7-20); CALCIUM 9.7 mg/dL (8.4-10.2); CARBON DIOXIDE 28 mmol/L (22-30); CHLORIDE 107 mmol/L (98-107); GLUCOSE 93 mg/dL (75-110); POTASSIUM 4.5 mmol/L (3.6-5.0); SODIUM 142.5 mmol/L (137-145); TOTAL PROTEIN 7.2 g/dL (6.3-8.2)
== END ==
LOC: CCC 12:21
DX: I10 Essential (primary) hypertension (principal)
CPT/HCPCS: 36415; 80053; 83036; 84443; 85025

== ENCOUNTER → 2018-05-25 | Outpatient (CLI) | payer OTHER ==
[2018-05-25 16:27] LABS: ABSOLUTE LYMPHOCYTES (AUTO) 1.4 10^3/uL (0.5-4.7); ABSOLUTE MONOCYTES (AUTO) 0.5 10^3/uL (0.1-1.4); ABSOLUTE NEUT (AUTO) 5.5 10^3/uL (1.7-8.2); BASOPHILS % (AUTO) 0.4 % (0-2); EOSINOPHILS % (AUTO) 0.4 % (0-6); HEMATOCRIT 36.2 % (36.0-47.0); HEMOGLOBIN 12.2 g/dL (12.0-15.5); MEAN CORPUSCULAR HEMOGLOBIN 28.6 pg (27.0-33.4); MEAN CORPUSCULAR HGB CONC 33.7 g/dL (32.0-36.0); MEAN CORPUSCULAR VOLUME 85 fl (80-97); MONOCYTES % (AUTO) 6.7 % (3-13); PLATELET COUNT 243 10^3/uL (150-450); RED BLOOD COUNT 4.27 10^6/uL (3.72-5.28); RED CELL DISTRIBUTION WIDTH 15.3 % (11.5-14.0); SEGMENTED NEUTROPHILS % (AUTO) 73.5 % (42-78); TOTAL CELLS COUNTED % (AUTO) 100 %; WHITE BLOOD COUNT 7.5 10^3/uL (4.0-10.5)
== END ==
LOC: CCC 15:11
DX: Z12.9 Encounter for screening for malignant neoplasm, site unspecified (principal)
CPT/HCPCS: 36415; 85025

== ENCOUNTER 2018-12-29 13:14 | Emergency (ER) | payer SELFPAY ==
--- NOTE | 2018-12-29 14:26 | ER Document Report ---
ED Medical Screen (RME) - General Chief Complaint: Vaginal Bleeding Stated Complaint: VAGINAL BLEEDING Time Seen by Provider: 12/29/18 14:25 Primary Care Provider: PRASAD CARRASQUILLO [Primary Care Provider] - Follow up as needed Mode of Arrival: Ambulatory Information source: Patient Notes: 38-year-old female presents to ED for vaginal spotting, itching, and burning. She states she did have a tubal ligation 19 years ago. Patient is alert oriented respirations regular and unlabored speaking in full sentences she states when she urinates the itching is worse and when she wipes there is blood. I have greeted and performed a rapid initial assessment of this patient. A comprehensive ED assessment and evaluation of the patient, analysis of test results and completion of medical decision making process will be conducted by an additional ED providers. TRAVEL OUTSIDE OF THE [place] IN LAST 30 DAYS: No - Related Data Allergies/Adverse Reactions: No Known Allergies Allergy (Verified 12/29/18 14:23) Past Medical History - Past Medical History Cardiac Medical History: Reports: Hx Hypertension Neurological Medical History: Denies: Hx Seizures Endocrine Medical History: Denies: Hx Diabetes Mellitus Type 1, Hx Diabetes Mellitus Type 2 Renal/ Medical History: Denies: Hx Peritoneal Dialysis Psychiatric Medical History: Reports: Hx Anxiety, Hx Bipolar Disorder, Hx Borderline Personality Disorder, Hx Depression, Hx Obsessive Compulsive Disorder, Hx Schizoaffective Disorder, Hx Schizophrenia Past Surgical History: Reports: Hx Section, Hx Tubal Ligation - Immunizations Hx Diphtheria, Pertussis, Tetanus Vaccination: No Doctor's Discharge - Discharge Referrals: PRASAD CARRASQUILLO [Primary Care Provider] - Follow up as needed
[2018-12-29 14:37] LABS: APPEARANCE,URINE SLIGHTLY-CLOUDY; BILIRUBIN,URINE NEGATIVE (NEGATIVE); COLOR,URINE YELLOW; GLUCOSE, URINE NEGATIVE (NEGATIVE); KETONES,URINE NEGATIVE (NEGATIVE); LEUKOCYTE ESTERASE,URINE MODERATE (NEGATIVE); NITRITE,URINE NEGATIVE (NEGATIVE); PROTEIN,URINE NEGATIVE (NEGATIVE); UROBILINOGEN,URINE NEGATIVE mg/dL (<2.0)
[2018-12-29 17:28] LABS: EPITHELIALS (WET MOUNT) 3+ EPITHELIALS SEEN; RBCS (WET MOUNT) RARE RBCS SEEN; T.VAGINALIS (WET MOUNT) NO TRICHOMONAS SEEN; WBCS (WET MOUNT) NO WBCS SEEN; YEAST (WET MOUNT) NO YEAST SEEN
[2018-12-29 17:30] VITALS: BP 151/97
[2018-12-29] MEDS ORDERED: CEFTRIAXONE INJ 250 MG VIAL IM ONE (17:46)
[2018-12-29] MEDS ORDERED: LIDOCAINE 1% INJ-PF (10 MG/ML) 30 ML SDV IM ONE (17:46)
[2018-12-29] MEDS ORDERED: AZITHROMYCIN 250 MG TABLET PO ONE (17:46)
--- NOTE | 2018-12-29 17:53 | ER Document Report ---
HPI - HPI Time Seen by Provider: 12/29/18 14:25 Pain Level: 2 Notes: Patient is otherwise healthy 38-year-old female presenting to the emergency department with complaint of intermittent vaginal spotting, itching and burning. She denies any dysuria or urinary frequency. She denies any abnormal vaginal discharge. - GASTROINTESTINAL Gastrointestinal: REPORTS: Abdominal Pain - bloating - REPRODUCTIVE LMP: Tubiligation Reproductive: REPORTS: Abnormal bleeding / discharge. DENIES: : Past Medical History - General Information source: Patient - Social History Smoking Status: Never Smoker Chew tobacco use (# tins/day): No Frequency of alcohol use: None Drug Abuse: None Family History: Reviewed & Not Pertinent Patient has suicidal ideation: No Patient has homicidal ideation: No - Past Medical History Cardiac Medical History: Reports: Hx Hypertension Neurological Medical History: Denies: Hx Seizures Endocrine Medical History: Denies: Hx Diabetes Mellitus Type 1, Hx Diabetes Mellitus Type 2 Renal/ Medical History: Denies: Hx Peritoneal Dialysis Psychiatric Medical History: Reports: Hx Anxiety, Hx Bipolar Disorder, Hx Borderline Personality Disorder, Hx Depression, Hx Obsessive Compulsive Disorder, Hx Schizoaffective Disorder, Hx Schizophrenia Past Surgical History: Reports: Hx Section, Hx Tubal Ligation - Immunizations Hx Diphtheria, Pertussis, Tetanus Vaccination: No Vertical Provider Document - CONSTITUTIONAL Notes: PHYSICAL EXAMINATION: GENERAL: Well-appearing, well-nourished and in no acute distress. HEAD: Atraumatic, normocephalic. EYES: Pupils equal round and reactive to light, extraocular movements intact, conjunctiva are normal. ENT: Nares patent, oropharynx clear without exudates. Moist mucous membranes. NECK: Normal range of motion, supple without lymphadenopathy LUNGS: Breath sounds clear to auscultation bilaterally and equal. No wheezes rales or rhonchi. HEART: Regular rate and rhythm without murmurs ABDOMEN: Soft, nontender, nondistended abdomen. No guarding, no rebound. No masses appreciated. Female : Normal external genitalia, no cervical motion tenderness or adnexal tenderness, scant vaginal discharge noted without odor. Musculoskeletal: Normal range of motion, no pitting or edema. No cyanosis. NEUROLOGICAL: Cranial nerves grossly intact. Normal speech, normal gait. Normal sensory, motor exams PSYCH: Normal mood, normal affect. SKIN: Warm, Dry, normal turgor, no rashes or lesions noted. - INFECTION CONTROL TRAVEL OUTSIDE OF THE [place] IN LAST 30 DAYS: No Course - Re-evaluation Re-evalutation: Work-up today has been unremarkable. There is trace leukocyte esterase, patient has no UTI symptoms so I will not treat her at this time and will place an order for a urine culture. Patient would like prophylactic treatment for chlamydia and gonorrhea, Rocephin and azithromycin have been ordered. Patient given ED return precautions. Patient verbalizes understanding and agreement with same. - Vital Signs Vital signs: Temp Pulse Resp BP Pulse Ox 98.1 F 79 13 151/97 H 99 12/29/18 17:30 12/29/18 17:30 12/29/18 17:30 12/29/18 17:30 12/29/18 17:30 - Laboratory Laboratory results interpreted by me: 12/29/18 14:14 Urine Blood LARGE H Ur Leukocyte Esterase MODERATE H Discharge - Discharge Clinical Impression: Vaginal itching Condition: Stable Disposition: HOME, SELF-CARE Additional Instructions: Your work-up here in the emergency department today was unremarkable. I did send your urine for culture. If there is any abnormality with this someone will call you and call in a prescription for an antibiotic if there is evidence of urinary tract infection. We did give you prophylactic treatment for chlamydia and gonorrhea however both of these tests are still pending. [facility]: [facility] [Primary Care Provider] - Follow up as needed
[2018-12-29 18:53] LABS: CHLAM PCR NOT DETECTED (NOT DETECT)
== END 2018-12-29 18:16 | disposition home or self-care (01) ==
LOC: ER 13:14
DX: L29.9 Pruritus, unspecified (principal); N93.9 Abnormal uterine and vaginal bleeding, unspecified; R39.89 Other symptoms and signs involving the genitourinary system; R14.0 Abdominal distension (gaseous); I10 Essential (primary) hypertension; Z98.51 Tubal ligation status
CPT/HCPCS: 87210; 81025; 81001; 87491; 87591; J3490; J0696; 87086

== ENCOUNTER 2019-07-27 13:12 | Emergency (ER) | payer MEDICAID ==
[2019-07-27 13:19] VITALS: BP 159/103
--- NOTE | 2019-07-27 13:25 | ER Document Report ---
ED Medical Screen (RME) - General Chief Complaint: Psych Problem Stated Complaint: ANXIOUS Time Seen by Provider: 07/27/19 13:24 Primary Care Provider: [facility] [Primary Care Provider] - Follow up as needed TRAVEL OUTSIDE OF THE [place] IN LAST 30 DAYS: No - HPI Notes: 07/27/19 13:26 38-year-old female who presents emergency room due to extreme anxiety, states the "world is coming to an end to do this fires", feels agitated, anxious, aggressive since being off her anxiety medications. Patient states that she is "paranoid". Patient states she is having premonitions "of the world ending, people eating flesh" I asked her to just documenting Chiquita comes a letter but I just did my note so that she could . She states that someone keeps vacuuming at 4am in the morning. Patient is screaming and yelling at provider and nurse. Patient states that she was taken off her Vistaril but put on a Prozac. She states she is only on Prozac now. Patient states she has not been able to get a hold of her provider to get her medications situated. I have greeted and performed a rapid initial assessment of this patient. A comprehensive ED assessment and evaluation of the patient, analysis of test results and completion of the medical decision making process will be conducted by additional ED providers. PHYSICAL EXAMINATION: GENERAL: Well-appearing, well-nourished and in mild distress HEAD: Atraumatic, normocephalic. NECK: Normal range of motion CV: s1, s2 regular LUNGS: No respiratory distress pysch: Rapid speech, aggression SKIN: Warm, Dry, normal turgor, no rashes or lesions noted. 07/27/19 13:28 - Related Data Allergies/Adverse Reactions: No Known Allergies Allergy (Verified 12/29/18 14:23) Past Medical History - Past Medical History Cardiac Medical History: Reports: Hx Hypertension Neurological Medical History: Denies: Hx Seizures Endocrine Medical History: Denies: Hx Diabetes Mellitus Type 1, Hx Diabetes Mellitus Type 2 Renal/ Medical History: Denies: Hx Peritoneal Dialysis Psychiatric Medical History: Reports: Hx Anxiety, Hx Bipolar Disorder, Hx Borderline Personality Disorder, Hx Depression, Hx Obsessive Compulsive Disorder, Hx Schizoaffective Disorder, Hx Schizophrenia Past Surgical History: Reports: Hx Section, Hx Tubal Ligation - Immunizations Hx Diphtheria, Pertussis, Tetanus Vaccination: No Physical Exam - Vital signs Vitals: Temp Pulse Resp BP Pulse Ox 100.1 F 96 20 159/103 H 100 07/27/19 13:18 07/27/19 13:18 07/27/19 13:18 07/27/19 13:18 07/27/19 13:18 Course - Vital Signs Vital signs: Temp Pulse Resp BP Pulse Ox 100.1 F 96 20 159/103 H 100 07/27/19 13:18 07/27/19 13:18 07/27/19 13:18 07/27/19 13:18 07/27/19 13:18 Doctor's Discharge - Discharge Referrals: [facility] [Primary Care Provider] - Follow up as needed
--- NOTE | 2019-07-27 13:36 | ER Document Report ---
ED Medical Screen (RME) - General Chief Complaint: Psych Problem Stated Complaint: ANXIOUS Time Seen by Provider: 07/27/19 13:24 Primary Care Provider: [facility] [Primary Care Provider] - Follow up as needed TRAVEL OUTSIDE OF THE [place] IN LAST 30 DAYS: No - HPI Notes: 07/27/19 13:35 -year-old female who presents emergency room due to extreme anxiety, states the "world is coming to an end to do this fires", feels agitated, anxious, aggressive since being off her anxiety medications. Patient states that she is "paranoid". Patient states she is having premonitions "of the world ending, people eating flesh". She states that someone keeps vacuuming at 4am in the morning. Patient states that she was taken off her Vistaril but put on a Prozac. She states she is only on Prozac now. Patient states she has not been able to get a hold of her provider to get her medications situated. Denies any homicidal suicidal ideation. I have greeted and performed a rapid initial assessment of this patient. A comprehensive ED assessment and evaluation of the patient, analysis of test results and completion of the medical decision making process will be conducted by additional ED providers. I have greeted and performed a rapid initial assessment of this patient. A comprehensive ED assessment and evaluation of the patient, analysis of test results and completion of the medical decision making process will be conducted by additional ED providers. PHYSICAL EXAMINATION: GENERAL: Well-appearing, well-nourished and in mild distres. CV: s1, s2 regular LUNGS: No respiratory distress Musculoskeletal: Normal range of motion NEUROLOGICAL: Normal speech, normal gait. Psychological: Rapid speech, paranoia SKIN: Warm, Dry, normal turgor, no rashes or lesions noted. - Related Data Allergies/Adverse Reactions: No Known Allergies Allergy (Verified 12/29/18 14:23) Past Medical History - Past Medical History Cardiac Medical History: Reports: Hx Hypertension Neurological Medical History: Denies: Hx Seizures Endocrine Medical History: Denies: Hx Diabetes Mellitus Type 1, Hx Diabetes Mellitus Type 2 Renal/ Medical History: Denies: Hx Peritoneal Dialysis Psychiatric Medical History: Reports: Hx Anxiety, Hx Bipolar Disorder, Hx Borderline Personality Disorder, Hx Depression, Hx Obsessive Compulsive Disorder, Hx Schizoaffective Disorder, Hx Schizophrenia Past Surgical History: Reports: Hx Section, Hx Tubal Ligation - Immunizations Hx Diphtheria, Pertussis, Tetanus Vaccination: No Physical Exam - Vital signs Vitals: Temp Pulse Resp BP Pulse Ox 100.1 F 96 20 159/103 H 100 07/27/19 13:18 07/27/19 13:18 07/27/19 13:18 07/27/19 13:18 07/27/19 13:18 Course - Vital Signs Vital signs: Temp Pulse Resp BP Pulse Ox 100.1 F 96 20 159/103 H 100 07/27/19 13:18 07/27/19 13:18 07/27/19 13:18 07/27/19 13:18 07/27/19 13:18 Doctor's Discharge - Discharge Referrals: [facility] [Primary Care Provider] - Follow up as needed
[2019-07-27 13:55] LABS: ABSOLUTE EOSINOPHILS # (AUTO) 0.1 10^3/uL (0.0-0.6); ABSOLUTE LYMPHOCYTES (AUTO) 1.3 10^3/uL (0.5-4.7); ABSOLUTE MONOCYTES (AUTO) 0.5 10^3/uL (0.1-1.4); ABSOLUTE NEUT (AUTO) 5.5 10^3/uL (1.7-8.2); BASOPHILS % (AUTO) 0.5 % (0-2); EOSINOPHILS % (AUTO) 0.7 % (0-6); HEMATOCRIT 34.3 % (36.0-47.0); HEMOGLOBIN 11.8 g/dL (12.0-15.5); LYMPHOCYTES % (AUTO) 18.1 % (13-45); MEAN CORPUSCULAR HEMOGLOBIN 29.1 pg (27.0-33.4); MEAN CORPUSCULAR HGB CONC 34.3 g/dL (32.0-36.0); MEAN CORPUSCULAR VOLUME 85 fl (80-97); MONOCYTES % (AUTO) 6.4 % (3-13); PLATELET COUNT 274 10^3/uL (150-450); RED BLOOD COUNT 4.04 10^6/uL (3.72-5.28); RED CELL DISTRIBUTION WIDTH 15.2 % (11.5-14.0); SEGMENTED NEUTROPHILS % (AUTO) 74.3 % (42-78); TOTAL CELLS COUNTED % (AUTO) 100 %; WHITE BLOOD COUNT 7.4 10^3/uL (4.0-10.5)
[2019-07-27 14:00] LABS: APPEARANCE,URINE SLIGHTLY-CLOUDY; BILIRUBIN,URINE NEGATIVE (NEGATIVE); COLOR,URINE YELLOW; GLUCOSE, URINE NEGATIVE (NEGATIVE); KETONES,URINE NEGATIVE (NEGATIVE); LEUKOCYTE ESTERASE,URINE NEGATIVE (NEGATIVE); NITRITE,URINE NEGATIVE (NEGATIVE); PROTEIN,URINE 30 mg/dL (NEGATIVE); URINE SPECIFIC GRAVITY 1.026; UROBILINOGEN,URINE NEGATIVE mg/dL (<2.0)
--- NOTE | 2019-07-27 14:10 | ER Document Report ---
ED General - General Chief Complaint: Psych Problem Stated Complaint: ANXIOUS Time Seen by Provider: 07/27/19 13:24 Primary Care Provider: [facility] [Primary Care Provider] - Follow up as needed Notes: 38 female presents with extreme anxiety after medication adjustment. She is on the phone with her therapist during my interview and refuses to talk to me. She has been told that she needs some labs and EKG, but is refused to the nursing. Previous notes by Jyoti Gomez indicate that she has a history of psych problems has no SI or HI was here voluntarily. TRAVEL OUTSIDE OF THE [place] IN LAST 30 DAYS: No - Related Data Allergies/Adverse Reactions: No Known Allergies Allergy (Verified 12/29/18 14:23) Home Medications: Prozac, Buspar, Zyprexa, Vistiril, Amlodipine Past Medical History - Social History Smoking Status: Unknown if Ever Smoked Family History: Reviewed & Not Pertinent Patient has homicidal ideation: No - Past Medical History Cardiac Medical History: Reports: Hx Hypertension Neurological Medical History: Denies: Hx Seizures Endocrine Medical History: Denies: Hx Diabetes Mellitus Type 1, Hx Diabetes Mellitus Type 2 Renal/ Medical History: Denies: Hx Peritoneal Dialysis Psychiatric Medical History: Reports: Hx Anxiety, Hx Bipolar Disorder, Hx Borderline Personality Disorder, Hx Depression, Hx Obsessive Compulsive Disorder, Hx Schizoaffective Disorder, Hx Schizophrenia Past Surgical History: Reports: Hx Section, Hx Tubal Ligation - Immunizations Hx Diphtheria, Pertussis, Tetanus Vaccination: No Review of Systems - Review of Systems Notes: REVIEW OF SYSTEMS Refuses PHYSICAL EXAMINATION General: No acute distress, well-nourished Head: Atraumatic, normocephalic ENT: Mouth normal, oropharynx moist, no exudates or tonsillar enlargement Eyes: Conjunctiva normal, pupils equal, lids normal Neck: No JVD, supple, no guarding CVS: Normal rate, regular rhythm, no murmurs Resp: No resp distress, equal and normal breath sounds bilaterally GI: Nondistended, soft, no tenderness to palpation, no rebound or guarding Ext: No deformities, no edema, normal range of motion in upper and lower ext Back: No CVA or midline TTP Skin: No rash, warm Lymphatic: No lymphadeopathy noted Neuro: Awake, alert. Face symmetric. GCS 15. : Anxiety pressured speech but no hallucinations no SI no HI Physical Exam - Vital signs Vitals: Temp Pulse Resp BP Pulse Ox 100.1 F 96 20 159/103 H 100 07/27/19 13:18 07/27/19 13:18 07/27/19 13:18 07/27/19 13:18 07/27/19 13:18 Course - Re-evaluation Re-evalutation: 07/27/19 14:10 Anxiety not meeting psych hold criteria does not want to be here already on the phone with therapist Adjust meds as outpatient discharge. Does not meet IVC criteria. Her discharge I have discussed with the patient there likely diagnosis, aftercare plan, follow-up plans and my usual and customary return precautions. They verbalized understanding of this. - Vital Signs Vital signs: Temp Pulse Resp BP Pulse Ox 100.1 F 96 20 159/103 H 100 07/27/19 13:29 07/27/19 13:18 07/27/19 13:18 07/27/19 13:18 07/27/19 13:18 - Laboratory Result Diagrams: 07/27/19 13:35 07/27/19 13:35 Laboratory results interpreted by me: 07/27/19 13:35 Urine Protein 30 H Urine Blood SMALL H Discharge - Discharge Clinical Impression: Anxiety Condition: Good Disposition: HOME, SELF-CARE Referrals: [facility] [Primary Care Provider] - Follow up as needed
[2019-07-27 14:19] LABS: ACETAMINOPHEN < 10 ug/mL (10-30); ALBUMIN 4.5 g/dL (3.5-5.0); ALCOHOL < 10 mg/dL (NONE DETECTED); ALKALINE PHOSPHATASE 53 U/L (38-126); ANION GAP 6 (5-19); ASPARTATE AMINO TRANSFERASE 30 U/L (14-36); BILIRUBIN,TOTAL 0.9 mg/dL (0.2-1.3); BLOOD UREA NITROGEN 14 mg/dL (7-20); CALCIUM 9.4 mg/dL (8.4-10.2); CARBON DIOXIDE 27 mmol/L (22-30); CHLORIDE 105 mmol/L (98-107); GLUCOSE 110 mg/dL (75-110); SALICYLATE < 1.0 mg/dL (2.0-20.0); TOTAL PROTEIN 8.2 g/dL (6.3-8.2); URINE AMPHETAMINES SCREEN NEGATIVE; URINE BARBITURATES SCREEN NEGATIVE; URINE BENZODIAZEPINES SCREEN NEGATIVE; URINE COCAINE SCREEN NEGATIVE; URINE METHADONE SCREEN NEGATIVE; URINE PHENCYCLIDINE SCREEN NEGATIVE
[2019-07-27 14:20] LABS: URINE MARIJUANA (THC) SCREEN UNCONFIRMED POSITIVE
== END 2019-07-27 14:13 | disposition home or self-care (01) ==
LOC: ER 13:12
DX: F41.9 Anxiety disorder, unspecified (principal); F31.9 Bipolar disorder, unspecified; F25.9 Schizoaffective disorder, unspecified; I10 Essential (primary) hypertension; Z79.899 Other long term (current) drug therapy
CPT/HCPCS: 36415; 80053; 80307; 81001; 85025; 99283

== ENCOUNTER 2019-09-26 10:05 | Emergency (ER) | payer OTHER ==
[2019-09-26 10:18] VITALS: BP 132/77
--- NOTE | 2019-09-26 10:29 | ER Document Report ---
HPI - HPI Time Seen by Provider: 09/26/19 10:11 Pain Level: 2 Notes: 39-year-old female with a history of OCD and anxiety presents to the ED for concerns of a wound that she believes is from having a done approximately 30 years ago that has reopened. Patient states she has been washing it with soap and water twice a day. States she exercises quite a bit so she is concerned this may have been the cause of it, denies any traumas or falls. Denies any self-mutilation. Tetanus is up-to-date. Denies fevers, chills, chest pain,palpitations, shortness of breath, dyspnea, nausea, vomiting, diarrhea, abdominal pain, hematuria,blurred vision, double vision, loss of vision, speech changes, LH, dizziness, syncope, headaches, wheezing, ST, URI, neck pain, weakness, bowel or bladder dysfunction, saddle anesthesia, numbness or tingling in bilateral upper or lower extremities equally, muscle paralysis, weakness in bilateral upper or lower extremities equally or rash. Denies IV drug use. MEDICATIONS: I agree with the patient medications as charted by the RN. ALLERGIES: I agree with the allergies as charted by the RN. PAST MEDICAL HISTORY/PAST SURGICAL HISTORY: Reviewed and agree as charted by RN. SOCIAL HISTORY: Reviewed and agree as charted by RN. FAMILY HISTORY: No significant familial comorbid conditions directly related to patient complaint EXAM: Reviewed vital signs as charted by RN. REVIEW OF SYSTEMS:reviewed vital signs by RN CONSTITUTIONAL : Denies fever, chills, or sweats. Denies recent illness. EENT: Denies eye, ear, throat, or mouth pain or symptoms. Denies nasal or sinus congestion or discharge. Denies throat, tongue, or mouth swelling or difficulty swallowing. CARDIOVASCULAR: Denies chest pain. Denies palpitations or racing or irregular heart beat. Denies ankle edema. RESPIRATORY: Denies cough, cold, or chest congestion. Denies shortness of breath, difficulty breathing, or wheezing. GASTROINTESTINAL: Denies abdominal pain or distention. Denies nausea, vomiting, or diarrhea. Denies blood in vomitus, stools, or per rectum. Denies black, tarry stools. Denies constipation. GENITOURINARY: Denies difficulty urinating, painful urination, burning, frequency, blood in urine, or discharge. FEMALE GENITOURINARY: Denies vaginal bleeding, heavy or abnormal periods, irregular periods. Denies vaginal discharge or odor. MUSCULOSKELETAL: Denies back or neck pain or stiffness. Denies joint pain or s welling. SKIN: Reports a wound to her lower abdomen. denies rash, lesions or sores. HEMATOLOGIC : Denies easy bruising or bleeding. LYMPHATIC: Denies swollen, enlarged glands. NEUROLOGICAL: Denies confusion or altered mental status. Denies passing out or loss of consciousness. Denies dizziness or lightheadedness. Denies headache. Denies weakness or paralysis or loss of use of either side. Denies problems with gait or speech. Denies sensory loss, numbness, or tingling. Denies seizures. PSYCHIATRIC: Denies anxiety or stress. Denies depression, suicidal ideation, or homicidal ideation. ALL OTHER SYSTEMS REVIEWED AND NEGATIVE. PHYSICAL EXAMINATION: GENERAL: Well-appearing, well-nourished and in no acute distress. HEAD: Atraumatic, normocephalic. EYES: Pupils equal round and reactive to light, extraocular movements intact, conjunctiva are normal. ENT: Nares patent, oropharynx clear without exudates. Moist mucous membranes. NECK: Normal range of motion, supple without lymphadenopathy LUNGS: Breath sounds clear to auscultation bilaterally and equal. No wheezes rales or rhonchi. HEART: Regular rate and rhythm without murmurs ABDOMEN: Soft, nontender, nondistended abdomen. No guarding, no rebound. No masses appreciated. Female : deferred Musculoskeletal: Normal range of motion, no pitting or edema. No cyanosis. NEUROLOGICAL: Cranial nerves grossly intact. Normal speech, normal gait. Normal sensory, motor exams PSYCH: anxious SKIN: Warm, Dry, normal turgor, no rashes or lesions noted. Approximately 0.5cm x 0.5cm to suprapubic area wound of superficial dermis no any surrounding erythema induration warmth to touch. No drainage from wound. No surrounding lymphadenopathy Melonie Shi RN witnessed to whole examination from HPI to examination due to patient being overtly anxious. Dictation was performed using [employer] voice recognition software - REPRODUCTIVE Reproductive: DENIES: : Past Medical History - General Information source: Patient - Social History Smoking Status: Unknown if Ever Smoked Family History: Reviewed & Not Pertinent - Past Medical History Cardiac Medical History: Reports: Hx Hypertension Neurological Medical History: Denies: Hx Seizures Endocrine Medical History: Denies: Hx Diabetes Mellitus Type 1, Hx Diabetes Mellitus Type 2 Renal/ Medical History: Denies: Hx Peritoneal Dialysis Psychiatric Medical History: Reports: Hx Anxiety, Hx Bipolar Disorder, Hx Borderline Personality Disorder, Hx Depression, Hx Obsessive Compulsive Disorder, Hx Schizoaffective Disorder, Hx Schizophrenia Past Surgical History: Reports: Hx Section, Hx Tubal Ligation - Immunizations Hx Diphtheria, Pertussis, Tetanus Vaccination: No Vertical Provider Document - CONSTITUTIONAL Agree With Documented VS: Yes Exam Limitations: No Limitations General Appearance: WD/WN - INFECTION CONTROL TRAVEL OUTSIDE OF THE [place] IN LAST 30 DAYS: No Course - Re-evaluation Re-evalutation: 09/26/19 12:41 Afebrile vital stable no distress. Nurses notes reviewed. I did have the nurse, Melonie Shi RN at bedside for witness the conversation due to patient being extremely anxious. Discussed with patient that she can put a topical antibiotic ointment on it and monitor it. To follow-up with her doctor within 2 days for reevaluation. Patient states she does not want to see mental health substantiates stable on her medications for her OCD and anxiety. Patient was told to come to the ER by her doctor and urgent care without them looking at her just from her saying that it was a wound that she thinks she had from a 31-year- old I advised her to go to the emergency room. After performing a Medical Screening Examination, I estimate there is LOW risk for OPEN FRACTURE, COMPARTMENT SYNDROME, TENDON RUPTURE, ACUTE NEUROVASCULAR INJURY, or RETAINED FOREIGN BODY, thus I consider the discharge disposition reasonable. Also, there is no evidence or peritonitis, sepsis, or toxicity. I have reevaluated this patient multiple times and no significant life threatening changes are noted. The patient and I have discussed the diagnosis and risks, and we agree with discharging home with close follow-up with the understanding that symptoms and presentations can change. We also discussed returning to the Emergency Department immediately if new or worsening symptoms occur. We have discussed the symptoms which are most concerning (e.g., changing or worsening pain, fever, numbness, weakness, cool or painful digits) that necessitate immediate return. 09/26/19 12:42 - Vital Signs Vital signs: Temp Pulse Resp BP Pulse Ox 99.6 F 98 18 132/77 H 100 09/26/19 10:14 09/26/19 10:14 09/26/19 10:14 09/26/19 10:14 09/26/19 10:14 Discharge - Discharge Clinical Impression: small wound to lower abdomen Condition: Stable Disposition: HOME, SELF-CARE Instructions: Antibiotic Ointment Protection ([facility]), Soap Cleansing ([facility]) Additional Instructions: Use antibiotic ointment as directed. Wash with soap and water twice a day. Please go to your primary care provider for reevaluation of the wound within 2 days. If you experience any fever chills, worsening wound, any abdominal pain, nausea or vomiting, chest pain or shortness of breath etc. return to the emergency room immediately. Return immediately for any new or worsening symptoms. Follow up with primary care provider, call tomorrow to make followup appointment. Prescriptions: Mupirocin [Bactroban 2% Ointment 22 gm] 1 applic TP TID #1 tube Referrals: JORDANA RICE MD [COMMUNITY BASED STAFF] - Follow up as needed
== END 2019-09-26 10:32 | disposition home or self-care (01) ==
LOC: ER 10:05
DX: S31.109A Unspecified open wound of abdominal wall, unspecified quadrant without penetration into peritoneal cavity, initial encounter (principal); F41.9 Anxiety disorder, unspecified; X58.XXXA Exposure to other specified factors, initial encounter; I10 Essential (primary) hypertension
CPT/HCPCS: 99282

== ENCOUNTER 2020-03-15 09:54 | Emergency (ER) | payer MEDICAID ==
[2020-03-15] MEDS ORDERED: LORAZEPAM INJ 2 MG/1 ML VIAL IM ONE (10:12)
[2020-03-15] MEDS ORDERED: DIPHENHYDRAMINE HCL 50 MG/ML VIAL IM ONE (10:12)
[2020-03-15] MEDS ORDERED: HALOPERIDOL LACTATE INJ 5 MG/1 ML VIAL IM ONE (10:13)
[2020-03-15] MEDS ORDERED: CHLORPROMAZINE HCL INJ 25 MG/1 ML AMPULE IM ONE ×2 (10:33→10:53)
[2020-03-15 10:35] LABS: ABSOLUTE LYMPHOCYTES (AUTO) 0.9 10^3/uL (0.5-4.7); ABSOLUTE MONOCYTES (AUTO) 0.5 10^3/uL (0.1-1.4); ABSOLUTE NEUT (AUTO) 6.7 10^3/uL (1.7-8.2); BASOPHILS % (AUTO) 0.4 % (0-2); HEMATOCRIT 33.8 % (36.0-47.0); HEMOGLOBIN 11.1 g/dL (12.0-15.5); LYMPHOCYTES % (AUTO) 10.6 % (13-45); MEAN CORPUSCULAR HEMOGLOBIN 27.8 pg (27.0-33.4); MEAN CORPUSCULAR HGB CONC 32.9 g/dL (32.0-36.0); MEAN CORPUSCULAR VOLUME 85 fl (80-97); PLATELET COUNT 240 10^3/uL (150-450); RED CELL DISTRIBUTION WIDTH 14.4 % (11.5-14.0); TOTAL CELLS COUNTED % (AUTO) 100 %; WHITE BLOOD COUNT 8.1 10^3/uL (4.0-10.5)
--- NOTE | 2020-03-15 10:52 | RADIOLOGY REPORT (SQ) ---
EXAM DESCRIPTION: CHEST SINGLE VIEW IMAGES COMPLETED DATE/TIME: 03/15/2020 10:40 am REASON FOR STUDY: altered mental status COMPARISON: None. EXAM PARAMETERS: NUMBER OF VIEWS: One view. TECHNIQUE: Single frontal radiographic view of the chest acquired. RADIATION DOSE: NA LIMITATIONS: None. FINDINGS: LUNGS AND PLEURA: No opacities, masses or pneumothorax. No pleural effusion. MEDIASTINUM AND HILAR STRUCTURES: No masses. Contour normal. HEART AND VASCULAR STRUCTURES: Heart normal in size. Normal vasculature. BONES: No acute findings. HARDWARE: None in the chest. OTHER: No other significant finding. IMPRESSION: NO ACUTE RADIOGRAPHIC FINDING IN THE CHEST. TECHNICAL DOCUMENTATION: JOB ID: [id number] 2010 [employer]- All Rights Reserved Reading location - IP/workstation name: [email or web address]
[2020-03-15 10:57] LABS: ALBUMIN 4.2 g/dL (3.5-5.0); ALKALINE PHOSPHATASE 58 U/L (38-126); ANION GAP 9 (5-19); ASPARTATE AMINO TRANSFERASE 74 U/L (14-36); BILIRUBIN,DIRECT 0.2 mg/dL (0.0-0.4); BLOOD UREA NITROGEN 8 mg/dL (7-20); CALCIUM 9.6 mg/dL (8.4-10.2); CARBON DIOXIDE 26 mmol/L (22-30); CHLORIDE 103 mmol/L (98-107); CREATINE KINASE 1343 U/L (30-135); GLUCOSE 100 mg/dL (75-110); TOTAL PROTEIN 7.1 g/dL (6.3-8.2)
[2020-03-15 11:06] LABS: ACETAMINOPHEN < 10 ug/mL (10-30); ALCOHOL < 10 mg/dL (NONE DETECTED)
[2020-03-15 11:30] LABS: POTASSIUM 2.9 mmol/L (3.6-5.0)
[2020-03-15 12:08] LABS: VENOUS BLOOD BASE EXCESS -4.3 mmol/L; VENOUS BLOOD HCO3 20.6 mmol/L (20-32); VENOUS BLOOD PCO2 37.3 mmHg (35-63); VENOUS BLOOD PH 7.36 (7.30-7.42)
[2020-03-15] MEDS: POTASSI CL 20 MEQ/50 ML RIDER 20 MEQ/50 ML RTUPB IV SCH ×2 (12:54→15:50)
--- NOTE | 2020-03-15 15:06 | PSYCHOLOGICAL NOTE ---
Psych Note - Psych Note Date seen by psych provider: 03/15/20 Time seen by psych provider: 15:10 Psych Note: Reason for Consult: Psychosis Patient arrived to [facility] ED via EMS for concerns of aggressive behaviour and psychosis. Patient needed 4 pt restraints and medication to keep both the patient and staff safe. She is unable to engage in evaluation. Medication recommendations cannot be provided at this time due to the patient's home medications have not been reconciled/verified.
--- NOTE | 2020-03-15 16:14 | ER Document Report ---
Entered by LAURI EM SCRIBE 03/15/20 1011 Acting as scribe for:RUIZ AREVALO MD ED Psych Disorder / Suicide - General Stated Complaint: PSYCHIATRIC EPISODE Time Seen by Provider: 03/15/20 10:10 Mode of Arrival: Medic Information source: Emergency Med Personnel Cannot obtain history due to: Uncooperative Notes: This 39 year old female patient with a history of bipolar disorder, borderline personality disorder, and schizoaffective disorder presents to the ED today via EMS for evaluation of acute psychosis and aggressive behavior. EMS was called to the patient's home because a neighbor reportedly heard the patient throwing furniture and breaking windows. Upon arrival, EMS states that the patient was uncooperative and combative, so they administered Ketamine 250 mg IM. Patient is now alert, yelling/screaming at the staff, and is uncooperative, so HPI is limited and ROS/Physical exam are unobtainable. TRAVEL OUTSIDE OF THE [place] IN LAST 30 DAYS: No - Related Data Allergies/Adverse Reactions: No Known Allergies Allergy (Verified 12/29/18 14:23) Past Medical History - General Information source: [facility] Records Cannot obtain history due to: Uncooperative - Social History Smoking Status: Unknown if Ever Smoked Smoking Education Provided: No Family History: Reviewed & Not Pertinent - Past Medical History Cardiac Medical History: Reports: Hx Hypertension Psychiatric Medical History: Reports: Hx Anxiety, Hx Bipolar Disorder, Hx Borde rline Personality Disorder, Hx Depression, Hx Obsessive Compulsive Disorder, Hx Schizoaffective Disorder, Hx Schizophrenia Past Surgical History: Reports: Hx Section, Hx Tubal Ligation - Immunizations Hx Diphtheria, Pertussis, Tetanus Vaccination: No Review of Systems - Review of Systems -: Yes ROS unobtainable due to patient's medical condition - Uncooperative Physical Exam - Vital signs Vitals: Resp 17 03/15/20 10:10 - Notes Notes: Physical exam is unobtainable due to the patient being uncooperative, combative, and agitated. She is refusing to be examined and is yelling and screaming at ER staff. She requires physical and chemical restraints. Course - Re-evaluation Re-evalutation: 03/15/20 16:40 On arrival patient was combative and uncooperative EMS had given patient IM ketamine prior to arrival in order to get her here safely to the emergency department. Patient was was beginning to become more aroused as the ketamine wore off uncooperative and acute psychosis requiring sedation and physical restraints for safety of patient and staff. 03/15/20 17:10 Once patient's IV bag of KCl is completed repeat potassium and CPK. Also will check magnesium as well at that time. Once potassium is no longer requiring IV replacement patient may then be placed in the area of the mental health pot in the ED.. - Vital Signs Vital signs: Temp Pulse Resp BP Pulse Ox 98.8 F 89 16 146/109 H 100 03/17/20 07:52 03/17/20 07:52 03/17/20 07:52 03/17/20 07:52 03/17/20 07:52 Vital signs stable - Laboratory Results Result Diagrams: 03/15/20 10:19 03/16/20 15:25 Laboratory Results Interpreted: 03/15/20 03/15/20 03/15/20 10:19 10:19 18:42 Hgb 11.1 L Hct 33.8 L RDW 14.4 H Lymph % (Auto) 10.6 L Seg Neutrophils % 83.0 H Sodium Potassium 2.9 L* 3.2 L BUN 4 L Glucose 67 L AST 74 H Creatine Kinase 1343 H 1239 H Urine Protein Urine Ketones Urine Blood Acetaminophen < 10 L 03/16/20 03/16/20 06:42 15:25 Hgb Hct RDW Lymph % (Auto) Seg Neutrophils % Sodium 135.2 L Potassium 3.2 L BUN 3 L Glucose 111 H AST Creatine Kinase Urine Protein 100 H Urine Ketones 80 H Urine Blood SMALL H Acetaminophen Significant labs shows a potassium of 2.9 and a CK of 1300. Critical Laboratory Results Reviewed: Yes - Potassium 2.9 Attending or Supervising Physician who Reviewed Labs: RUIZ AREVALO - Radiology Results Radiology Results Interpreted: 03/15/20 17:09 Chest X-Ray 03/15/20 10:16 IMPRESSION: NO ACUTE RADIOGRAPHIC FINDING IN THE CHEST. Head CT 03/15/20 12:30 IMPRESSION: NO ACUTE INTRACRANIAL IMAGING FINDINGS. EVIDENCE OF ACUTE STROKE: NO. Chest x-ray shows no acute process CT scan of the head shows no evidence for stroke no acute intracranial imaging findings noted. Critical Radiology Results Reviewed: No Critical Results - EKG Interpretation by Me Additional EKG results interpreted by me: 03/15/20 16:38 Twelve-lead EKG shows normal sinus rhythm rate of 92 probable left atrial abnormality and borderline T wave abnormalities in the anterior leads patient has a normal axis TN interval within normal range QRS interval within normal range and QT interval within normal range no evidence for an acute STEMI. - Transfer of Care Care transferred to following provider: transfer care to Dr. Meeks Discharge - Discharge Clinical Impression: Acute psychosis, Schizophrenia, Hypokalemia Condition: Good Disposition: PSYCH HOSP/UNIT I personally performed the services described in the documentation, reviewed and edited the documentation which was dictated to the scribe in my presence, and it accurately records my words and actions.
--- NOTE | 2020-03-15 16:51 | RADIOLOGY REPORT (SQ) ---
EXAM DESCRIPTION: CT HEAD WITHOUT IMAGES COMPLETED DATE/TIME: 03/15/2020 3:24 pm REASON FOR STUDY: altered mental status. COMPARISON: None. TECHNIQUE: Axial images acquired through the brain without intravenous contrast. Images reviewed wi th bone, brain and subdural windows. Additional sagittal and coronal reconstructions were generated. Images stored on PACS. All CT scanners at this facility use dose modulation, iterative reconstruction, and/or weight based d osing when appropriate to reduce radiation dose to as low as reasonably achievable (ALARA). [facility]: Dose Right [facility]: CareDose [facility]: Dose Right [facility]: Teradose 4D [facility]: Smart Enviroo RADIATION DOSE: CT Rad equipment meets quality standard of care and radiation dose reduction techniq ues were employed. CTDIvol: 53.2 mGy. DLP: 911 mGy-cm. mGy. LIMITATIONS: None. FINDINGS: VENTRICLES: Normal size and contour. CEREBRUM: No masses. No hemorrhage. No midline shift. No evidence for acute infarction. Normal gra y/white matter differentiation. No areas of low density in the white matter. CEREBELLUM: No masses. No hemorrhage. No alteration of density. No evidence for acute infarction. EXTRAAXIAL SPACES: No fluid collections. No masses. ORBITS AND GLOBE: No intra- or extraconal masses. Normal contour of globe without masses. CALVARIUM: No fracture. PARANASAL SINUSES: No fluid or mucosal thickening. SOFT TISSUES: No mass or hematoma. OTHER: No other significant finding. IMPRESSION: NO ACUTE INTRACRANIAL IMAGING FINDINGS. EVIDENCE OF ACUTE STROKE: NO. COMMENT: Quality ID # [id number]: Final reports with documentation of one or more dose reduction techniques (e.g., Automated exposure control, adjustment of the mA and/or kV according to patient size, use of iterative reconstruction technique) TECHNICAL DOCUMENTATION: JOB ID: [id number] 2010 [employer]- All Rights Reserved Reading location - IP/workstation name: [email or web address]
[2020-03-15] MEDS ORDERED: NORMAL SALINE 1000 ML 1,000 ML IV ONE (17:08)
[2020-03-15 19:18] LABS: ANION GAP 9 (5-19); BLOOD UREA NITROGEN 4 mg/dL (7-20); CALCIUM 8.9 mg/dL (8.4-10.2); CARBON DIOXIDE 23 mmol/L (22-30); CHLORIDE 107 mmol/L (98-107); CREATINE KINASE 1239 U/L (30-135); POTASSIUM 3.2 mmol/L (3.6-5.0)
[2020-03-15] MEDS ORDERED: ZIPRASIDONE MESYLATE INJ/PF 20 MG SDV IM ONE (19:19)
[2020-03-15 19:21] LABS: GLUCOSE 67 mg/dL (75-110)
--- NOTE | 2020-03-15 19:22 | ER Document Report ---
Doctor's Note Notes: Received patient in signout, pending psychiatric evaluation. Patient is screaming, appears to be hallucinating and paranoid, appears to be acutely psychotic. Will administer 10 mg of Geodon to help with acute symptoms.
--- NOTE | 2020-03-15 19:47 | ER Document Report ---
Doctor's Note Notes: Potassium has increased. CK has down trended. Question if patient is suffering from dissociative identity. She appeared to have 3 personalities appear while she was yelling. One was fairly reasonable stating that she needs to go to bed, she is a heavy sleeper and requests lights off, and wants to go home in the morning Another one was argumentative and threatening, made a comment such as "look at my mouth, I got a Mike Chappel crackhead like mouth". Another one cried childlike
[2020-03-15] MEDS ORDERED: LORAZEPAM INJ 2 MG/1 ML VIAL IV ONE (19:56)
--- NOTE | 2020-03-15 22:00 | EKG REPORT ---
SEVERITY:- BORDERLINE ECG - SINUS RHYTHM PROBABLE LEFT ATRIAL ABNORMALITY BORDERLINE T ABNORMALITIES, ANTERIOR LEADS : Confirmed by: Tato Palacios 15-Mar-2020 21:59:07
[2020-03-16 07:01] LABS: APPEARANCE,URINE CLEAR; BILIRUBIN,URINE NEGATIVE (NEGATIVE); COLOR,URINE YELLOW; GLUCOSE, URINE NEGATIVE (NEGATIVE); KETONES,URINE 80 mg/dL (NEGATIVE); LEUKOCYTE ESTERASE,URINE NEGATIVE (NEGATIVE); NITRITE,URINE NEGATIVE (NEGATIVE); PROTEIN,URINE 100 mg/dL (NEGATIVE); URINE SPECIFIC GRAVITY 1.021; UROBILINOGEN,URINE NEGATIVE mg/dL (<2.0)
[2020-03-16 07:17] LABS: URINE AMPHETAMINES SCREEN NEGATIVE; URINE BARBITURATES SCREEN NEGATIVE; URINE BENZODIAZEPINES SCREEN NEGATIVE; URINE COCAINE SCREEN NEGATIVE; URINE METHADONE SCREEN NEGATIVE; URINE PHENCYCLIDINE SCREEN NEGATIVE
[2020-03-16 07:21] LABS: URINE MARIJUANA (THC) SCREEN UNCONFIRMED POSITIVE
--- NOTE | 2020-03-16 15:06 | ER Document Report ---
Doctor's Note Notes: 03/16/20 15:04 Patient's vital signs and previous labs, diagnostic images reviewed. Reviewed mental health notes, nurse's notes and previous providers notes. VSS. Pt is in no distress at this time. Denies any SI or HI. Will recheck another potassium as her last one drawn showed a potassium of 3.2 which is increased from 2.9. Mental health stated that they will do med reconciliation. General: A&Ox3. Answers questions appropriately. Heart: RRR Lungs: CTAB Psych: Flat affect A/P: Continue monitoring and rec's per MH. Normal diet plan: Continue to monitor. 03/16/20 15:05
[2020-03-16 16:05] LABS: ANION GAP 7 (5-19); BLOOD UREA NITROGEN 3 mg/dL (7-20); CALCIUM 9.2 mg/dL (8.4-10.2); CARBON DIOXIDE 22 mmol/L (22-30); CHLORIDE 106 mmol/L (98-107); GLUCOSE 111 mg/dL (75-110); POTASSIUM 3.2 mmol/L (3.6-5.0)
[2020-03-16] MEDS: BENZTROPINE MESYLATE 1 MG TABLET PO SCH (16:46)
[2020-03-16] MEDS: OLANZAPINE 5 MG TABLET PO SCH (17:44)
[2020-03-16] MEDS: DIVALPROEX SODIUM 250 MG TAB.SR.24H PO SCH (17:44)
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
[2020-03-17] MEDS: BENZTROPINE MESYLATE 1 MG TABLET PO SCH (10:06)
[2020-03-17] MEDS: DIVALPROEX SODIUM 250 MG TAB.SR.24H PO SCH ×2 (10:07→17:31)
[2020-03-17] MEDS: OLANZAPINE 5 MG TABLET PO SCH ×2 (10:07→17:31)
[2020-03-17] MEDS ORDERED: CHLORPROMAZINE HCL INJ 25 MG/1 ML AMPULE IM PRN (14:58)
--- NOTE | 2020-03-17 15:05 | ER Document Report ---
Doctor's Note Notes: 03/17/20 15:03 PHYSICAL EXAMINATION: GENERAL: Appears well, healthy, well-nourished, no acute distress. LUNGS: Equal breath sounds bilaterally and clear to auscultation. No wheezes rales or rhonchi. CARDIOVASCULAR: S1-S2, regular rate, regular rhythm. Radial pulses 2+, normal. ABDOMEN: Normoactive bowel sounds. Soft, nontender, no guarding, no rebound tenderness, and no masses palpated. PSYCH: Repetitive speech. Denies any suicidal or homicidal ideation. Patient states that she was being treated for a cavity to her left bottom tooth. States that she was on antibiotics. Patient does have decay to the area. Will place patient on penicillin. Patient also reports to the nurse that she does feel little anxious due to another patient crying in the area. We will place the patient on Thorazine. Discussed this with Jonnie, mental health voip network technician.
[2020-03-17] MEDS: PENICILLIN V POTASSIUM 500 MG TABLET PO SCH ×2 (15:10→17:29)
[2020-03-17] MEDS: CHLORPROMAZINE HCL 50 MG TABLET PO PRN ×2 (15:10→21:30)
[2020-03-17] MEDS: ACETAMINOPHEN 325 MG TABLET PO PRN (16:17)
[2020-03-18] MEDS: CHLORPROMAZINE HCL 50 MG TABLET PO PRN ×4 (06:23→23:15)
[2020-03-18] MEDS: OLANZAPINE 5 MG TABLET PO SCH ×2 (09:06→17:01)
[2020-03-18] MEDS: PENICILLIN V POTASSIUM 500 MG TABLET PO SCH ×4 (09:06→21:26)
[2020-03-18] MEDS: BENZTROPINE MESYLATE 1 MG TABLET PO SCH (09:06)
[2020-03-18] MEDS: DIVALPROEX SODIUM 250 MG TAB.SR.24H PO SCH ×2 (09:06→17:01)
[2020-03-18] MEDS: ACETAMINOPHEN 325 MG TABLET PO PRN (11:57)
--- NOTE | 2020-03-18 18:30 | ER Document Report ---
Doctor's Note Notes: 03/18/20 18:29 PHYSICAL EXAMINATION: GENERAL: Appears well, healthy, well-nourished, no acute distress. LUNGS: Equal breath sounds bilaterally and clear to auscultation. No wheezes rales or rhonchi. CARDIOVASCULAR: S1-S2, regular rate, regular rhythm. Radial pulses 2+, normal. ABDOMEN: Normoactive bowel sounds. Soft, nontender, no guarding, no rebound tenderness, and no masses palpated. PSYCH: Repetitive, elated speech. Patient is wondering about what the plan is going to be. Mental [facility] told her that she is going to go to [facility], but the patient does not remember mental health telling her. Patient is worried about her dog and whether or not she will have a home. According to [facility], [facility] is to tell the patient that her dog and home are gone.
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
--- NOTE | 2020-03-19 01:23 | ER Document Report ---
Doctor's Note Notes: 03/19/20 01:23 Nurse spoke with the [place] facility who is requesting a repeat potassium and a repeat CPK test as patient had previously had a low potassium and mildly increased CPK test. 03/19/20 04:02 RN states that she has not collected specimen as patient is presently sleeping and will collect the repeat lab work once patient has awakened.
[2020-03-19] MEDS: PENICILLIN V POTASSIUM 500 MG TABLET PO SCH ×2 (06:34→13:56)
[2020-03-19 07:34] VITALS: BP 150/78
[2020-03-19] MEDS: CHLORPROMAZINE HCL 50 MG TABLET PO PRN ×2 (09:15→16:06)
[2020-03-19] MEDS: OLANZAPINE 5 MG TABLET PO SCH (09:15)
[2020-03-19] MEDS: BENZTROPINE MESYLATE 1 MG TABLET PO SCH (09:16)
[2020-03-19] MEDS: DIVALPROEX SODIUM 250 MG TAB.SR.24H PO SCH (09:16)
[2020-03-19 12:54] LABS: ANION GAP 5 (5-19); BLOOD UREA NITROGEN 6 mg/dL (7-20); CALCIUM 9.9 mg/dL (8.4-10.2); CARBON DIOXIDE 35 mmol/L (22-30); CHLORIDE 99 mmol/L (98-107); CREATINE KINASE 783 U/L (30-135); GLUCOSE 101 mg/dL (75-110); POTASSIUM 3.6 mmol/L (3.6-5.0)
--- NOTE | 2020-03-19 15:54 | ER Document Report ---
Doctor's Note Notes: 03/19/20 15:28 PHYSICAL EXAMINATION: GENERAL: Appears well, healthy, well-nourished, no acute distress. LUNGS: Equal breath sounds bilaterally and clear to auscultation. No wheezes rales or rhonchi. CARDIOVASCULAR: S1-S2, regular rate, regular rhythm. Radial pulses 2+, normal. ABDOMEN: Normoactive bowel sounds. Soft, nontender, no guarding, no rebound tenderness, and no masses palpated. PSYCH: Elated mood, sometimes not willing to cooperate with staff. Patient denies any suicidal or homicidal ideation. Patient is to be transferred to [place] today. Patient's mood has been the same where she refuses to do things for the past 3 days. Mental health has recommended to increase Depakote to 500 mg twice daily and increase Thorazine to 50 mg every 6 hours as needed.
[2020-03-19] MEDS ORDERED: DIVALPROEX SODIUM 500 MG TAB.SR.24H PO ONE (15:55)
--- NOTE | 2020-03-19 17:42 | PSYCHOLOGICAL NOTE ---
Psych Note - Psych Note Date seen by psych provider: 03/19/20 Time seen by psych provider: 10:51 Psych Note: Re-adamal [id number] Patient was observed talking out loud in her room when clinician arrived. She stated she was talking to herself and stopped when she saw clinician. Patient stated she can no longer be a part of this game and she is done playing with these people. Patient states she wants to get the right people in trouble. Patient states her life almost got taken and asks Did you hear me? When clinician replied, Yes, patient replied, [place]. Clinician attempted to engage with patient who stated she was done talking. Patient continues to presents manic, paranoid, and with disorganized speech. Impression/ Plan: Patient is currently under full IVC and has been accepted to [facility]. She continues to demonstrate manic with pressured speech, flight of thought, at times illogical thought processes, and probable paranoid delusions. While patient's presentation has slightly improved where she is able to engage with [facility] staff and clinician at times, patient is still in need of further medication stabilization. Medication recommendations have been provided to medical provider while at the ED. Dr. Monique was consulted to care management of this patient; attending physicians in agreement with recommendations and disposition. Case management: [id number] called D to request transport for IVC patient to [facility]. Provided D with patient name, , and room number (43). Requested female officer, if available.
[2020-03-19] MEDS ORDERED: DIVALPROEX SODIUM 500 MG TAB.SR.24H PO SCH (18:00)
--- NOTE | 2020-03-19 19:16 | EKG REPORT ---
SEVERITY:- BORDERLINE ECG - SINUS RHYTHM BORDERLINE T ABNORMALITIES, ANTERIOR LEADS : Confirmed by: Amanda Tsai MD 19-Mar-2020 19:15:23
== END 2020-03-19 17:16 ==
LOC: ER 09:54
DX: F25.9 Schizoaffective disorder, unspecified (principal); E87.6 Hypokalemia; R41.82 Altered mental status, unspecified; K02.9 Dental caries, unspecified; I10 Essential (primary) hypertension; Z78.1 Physical restraint status; Z75.1 Person awaiting admission to adequate facility elsewhere; Z20.822 Contact with and (suspected) exposure to COVID-19; Z79.899 Other long term (current) drug therapy
CPT/HCPCS: 93005 ×2; 99285; 96372; 96361; 96374; 36415; 87040; 80307 ×3; 82550; 84702; 83605; 83690; 83735; 85025; 0202U ×23; 80048; 80053; 81001; 84484; 82803; 71045; 70450; 93010 ×2; J3490 ×21; J3230; J1200; J2060; J3486; J3480; J7030